=== PATIENT | male | born 1960 | race Caucasian/White ===

== ENCOUNTER 2023-02-19 14:43 | Inpatient (IN) | payer MEDICARE, MEDICAID ==
[~2023-02-19] VITALS: Ht 160 cm; Wt 51.3 kg
[2023-02-19] MEDS ORDERED: PIPERACILLIN/TAZ 3.375G PREMIX 50 ML IV ONE (15:45)
[2023-02-19] MEDS ORDERED: SODIUM CHLORIDE 0.9% 1000ML BAG (SEPSIS BOLUS) IV ONE (15:45)
[2023-02-19] MEDS ORDERED: VANCOMYCIN 1G PREMIX 200 ML IV ONE (15:45)
[2023-02-19 16:15] LABS: BASOPHILS % 0.3 % (0.0-2.0); EOSINOPHILS % 0.1 % (0.0-5.0); HEMATOCRIT. 29.3 % (42.0-52.0); HEMOGLOBIN. 9.4 g/dL (14.0-18.0); LYMPHOCYTES % 11.1 % (20.0-50.0); MEAN CORPUSCULAR VOLUME 87.2 fL (80.0-94.0); MEAN PLATELET VOLUME 7.7 fl (7.4-10.4); MONOCYTES % 4.6 % (2.0-8.0); NEUTROPHILS % 83.9 % (40.0-76.0); PLATELET 558 x1000/uL (130-400); RED BLOOD CELL COUNT 3.36 mill/uL (4.7-6.1); RED CELL DISTRIBUTION WIDTH 14.5 % (11.6-14.6)
[2023-02-19 16:25] LABS: PROTHROMBIN TIME 11.1 sec (9.6-11.0)
[2023-02-19 16:28] LABS: CHLORIDE 101 mEq/L (98-107)
[2023-02-19 17:45] LABS: CLARITY URINE CLEAR (CLEAR); COLOR URINE YELLOW (YELLOW); KETONES URINE NEGATIVE (NEGATIVE); LEUKOCYTE ESTERASE URINE NEGATIVE (NEGATIVE); NITRITE URINE NEGATIVE (NEGATIVE); OCCULT BLOOD URINE 3+ (NEGATIVE); PH URINE 5.5 (4.5-8.0); PROTEIN URINE 3+ (NEGATIVE); SPECIFIC GRAVITY URINE 1.029 (1.005-1.030)
[2023-02-19] MEDS ORDERED: MAGNESIUM HYDROXIDE 400MG/5ML 30ML UDC PO PRN (19:30)
[2023-02-19] MEDS ORDERED: CLONIDINE 0.1MG TABLET PO PRN (19:30)
[2023-02-19] MEDS ORDERED: VANCOMYCIN 1G PREMIX 200 ML IV SCH (19:30)
[2023-02-19] MEDS ORDERED: MAGNESIUM/ALUMINUM HYDROXIDE/SIMETHICONE 30ML UDC PO PRN (19:30)
[2023-02-19] MEDS ORDERED: HYDROCODONE/ACETAMINOPHEN 5/325MG TABLET PO PRN (19:30)
[2023-02-19] MEDS ORDERED: DIPHENHYDRAMINE 50MG/ML VIAL IV PRN (19:30)
[2023-02-19] MEDS ORDERED: ZOLPIDEM TARTRATE 5MG TABLET PO PRN (19:30)
[2023-02-19] MEDS ORDERED: ACETAMINOPHEN 325MG TABLET PO PRN ×2 (19:30)
[2023-02-19] MEDS ORDERED: DEXTROSE 50% WATER 50ML SYRINGE IV PRN (19:30)
[2023-02-19] MEDS ORDERED: ONDANSETRON HCL 4MG/2ML INJ IV PRN (19:30)
[2023-02-19] MEDS ORDERED: NALOXONE HCL 0.4MG/ML VIAL IV PRN (19:45)
[2023-02-19] MEDS: BLOOD SUGAR DIAGNOSTIC STRIP TEST SCH (21:14)
[2023-02-19] MEDS: INSULIN LISPRO 100 UNITS/ML SUBCUT SCH (21:31)
[2023-02-19] MEDS: ATORVASTATIN CALCIUM 40MG TABLET PO SCH (21:32)
[2023-02-19 21:45] VITALS: BP 137/72
[2023-02-20] VITALS: BP 122/71
[2023-02-20] MEDS ORDERED: APIX5TAB PO (00:49)
[2023-02-20] MEDS ORDERED: LOSA25TA26 MT (00:49)
[2023-02-20] MEDS ORDERED: ATOR-2 MT (00:49)
[2023-02-20] MEDS ORDERED: CEPH500T MT (00:49)
[2023-02-20] MEDS ORDERED: ASPI-1497 MT (00:49)
[2023-02-20] MEDS ORDERED: VANCOMYCIN 500MG PREMIX 100 ML IV SCH (01:00)
[2023-02-20] MEDS: SODIUM CHLORIDE 0.9% INJ 3ML FLUSH IVF SCH ×4 (01:31→21:01)
[2023-02-20] MEDS ORDERED: *PATIENT'S OWN MEDICATION STORAGE XX SCH (03:00)
[2023-02-20 04:00] VITALS: BP 129/72
[2023-02-20] MEDS: BLOOD SUGAR DIAGNOSTIC STRIP TEST SCH ×4 (06:28→20:53)
[2023-02-20] MEDS: INSULIN LISPRO 100 UNITS/ML SUBCUT SCH ×4 (06:59→21:06)
[2023-02-20 08:00] VITALS: BP 112/58
[2023-02-20] MEDS: DOCUSATE SODIUM 100MG CAPSULE PO SCH ×2 (08:46→17:37)
[2023-02-20] MEDS: LOSARTAN POTASSIUM 25 MG TABLET PO SCH (08:46)
[2023-02-20] MEDS: VANCOMYCIN 500MG PREMIX 100 ML IV SCH ×2 (08:46→17:37)
[2023-02-20] MEDS ORDERED: PNEUMOCOCCAL 23-VAL P-SAC VAC 0.5 ML IM ONE (11:00)
[2023-02-20 12:00] VITALS: BP 135/75
[2023-02-20] MEDS ORDERED: ASPIRIN 81MG TABLET PO SCH (12:30)
[2023-02-20] MEDS ORDERED: IOHEXOL-350 100 ML BOTTLE ONE (14:17)
[2023-02-20 16:00] VITALS: BP 157/75
[2023-02-20] MEDS ORDERED: APIXABAN 5 MG TABLET PO SCH (17:00)
[2023-02-20] MEDS: PIPERACILLIN/TAZOBACTAM 3.375 G in DEXTROSE 5% WATER 50 ML IV SCH (17:37)
[2023-02-20 20:00] VITALS: BP 113/62
[2023-02-20] MEDS: ATORVASTATIN CALCIUM 40MG TABLET PO SCH (20:55)
[2023-02-21] VITALS: BP 134/74
[2023-02-21] MEDS: PIPERACILLIN/TAZOBACTAM 3.375 G in DEXTROSE 5% WATER 50 ML IV SCH ×4 (00:03→22:07)
[2023-02-21] MEDS: VANCOMYCIN 500MG PREMIX 100 ML IV SCH ×2 (01:23→08:59)
[2023-02-21 04:00] VITALS: BP 131/69
[2023-02-21] MEDS: SODIUM CHLORIDE 0.9% INJ 3ML FLUSH IVF SCH ×3 (06:18→21:53)
[2023-02-21] MEDS: BLOOD SUGAR DIAGNOSTIC STRIP TEST SCH ×4 (06:23→21:53)
[2023-02-21] MEDS: INSULIN LISPRO 100 UNITS/ML SUBCUT SCH ×4 (06:23→21:55)
[2023-02-21 06:57] LABS: BASOPHILS % 0.4 % (0.0-2.0); EOSINOPHILS % 0.4 % (0.0-5.0); HEMATOCRIT. 29.3 % (42.0-52.0); HEMOGLOBIN. 9.5 g/dL (14.0-18.0); LYMPHOCYTES % 19.1 % (20.0-50.0); MEAN CORPUSCULAR HEMOGLOBIN 28.2 pg (28.0-32.0); MEAN CORPUSCULAR VOLUME 86.7 fL (80.0-94.0); MEAN PLATELET VOLUME 7.3 fl (7.4-10.4); MONOCYTES % 6.7 % (2.0-8.0); NEUTROPHILS % 73.4 % (40.0-76.0); PLATELET 577 x1000/uL (130-400); RED BLOOD CELL COUNT 3.37 mill/uL (4.7-6.1); RED CELL DISTRIBUTION WIDTH 14.7 % (11.6-14.6)
[2023-02-21 07:20] LABS: CREATINE KINASE 126 IU/L (39-308)
[2023-02-21 08:00] VITALS: BP 159/72
[2023-02-21] MEDS ORDERED: IODIXANOL 320MG/ML 100 ML BOTTLE IV ONE (08:36)
[2023-02-21] MEDS ORDERED: LIDOCAINE HCL 1% 20ML VIAL (Pyxis) INJ ONE (08:37)
[2023-02-21] MEDS ORDERED: HEPARIN 1000 UNITS/ML 10ML ONE (08:37)
[2023-02-21] MEDS: LOSARTAN POTASSIUM 25 MG TABLET PO SCH (08:59)
[2023-02-21] MEDS: DOCUSATE SODIUM 100MG CAPSULE PO SCH ×2 (09:00→17:55)
[2023-02-21] MEDS ORDERED: FENTANYL CITRATE/PF 50MCG/ML 2ML VIAL ONE (09:30)
[2023-02-21] MEDS ORDERED: MIDAZOLAM HCL 2 MG/2 ML VIAL ONE (09:30)
[2023-02-21 12:00] VITALS: BP 125/69
[2023-02-21] MEDS: CLOPIDOGREL 75MG TABLET PO SCH (12:49)
[2023-02-21 16:00] VITALS: BP 108/61
[2023-02-21 16:24] LABS: HEPATITIS B SURFACE ANTIGEN NEGATIVE
[2023-02-21 20:00] VITALS: BP 105/60
[2023-02-21] MEDS: ATORVASTATIN CALCIUM 40MG TABLET PO SCH (21:53)
[2023-02-22] VITALS: BP 121/66
[2023-02-22 04:00] VITALS: BP 156/78
[2023-02-22] MEDS: BLOOD SUGAR DIAGNOSTIC STRIP TEST SCH ×4 (06:07→20:50)
[2023-02-22] MEDS: PIPERACILLIN/TAZOBACTAM 3.375 G in DEXTROSE 5% WATER 50 ML IV SCH ×3 (06:15→20:48)
[2023-02-22] MEDS: INSULIN LISPRO 100 UNITS/ML SUBCUT SCH ×4 (06:16→20:50)
[2023-02-22] MEDS: SODIUM CHLORIDE 0.9% INJ 3ML FLUSH IVF SCH ×3 (06:17→20:51)
[2023-02-22 08:30] VITALS: BP 144/74
[2023-02-22] MEDS: DOCUSATE SODIUM 100MG CAPSULE PO SCH ×2 (08:36→16:38)
[2023-02-22] MEDS: LOSARTAN POTASSIUM 25 MG TABLET PO SCH (08:36)
[2023-02-22] MEDS: CLOPIDOGREL 75MG TABLET PO SCH (08:36)
[2023-02-22 12:10] VITALS: BP 124/70
[2023-02-22 16:00] VITALS: BP 146/78
[2023-02-22] MEDS ORDERED: TETANUS AND DIPHTHERIA TOX/PF 0.5ML SYR (ADULT) IM ONE (16:00)
[2023-02-22 20:00] VITALS: BP 132/69
[2023-02-22] MEDS: ATORVASTATIN CALCIUM 40MG TABLET PO SCH (20:49)
[2023-02-23] VITALS: BP 131/69
[2023-02-23 04:00] VITALS: BP 125/67
[2023-02-23] MEDS: PIPERACILLIN/TAZOBACTAM 3.375 G in DEXTROSE 5% WATER 50 ML IV SCH ×3 (06:42→21:44)
[2023-02-23] MEDS: INSULIN LISPRO 100 UNITS/ML SUBCUT SCH ×4 (06:43→20:46)
[2023-02-23] MEDS: BLOOD SUGAR DIAGNOSTIC STRIP TEST SCH ×4 (06:44→20:46)
[2023-02-23] MEDS: SODIUM CHLORIDE 0.9% INJ 3ML FLUSH IVF SCH ×3 (06:45→21:44)
[2023-02-23 07:09] LABS: BASOPHILS % 0.6 % (0.0-2.0); EOSINOPHILS % 0.8 % (0.0-5.0); HEMOGLOBIN. 8.6 g/dL (14.0-18.0); LYMPHOCYTES % 20.8 % (20.0-50.0); MEAN CORPUSCULAR HEMOGLOBIN 29.8 pg (28.0-32.0); MEAN CORPUSCULAR VOLUME 86.4 fL (80.0-94.0); MEAN PLATELET VOLUME 7.1 fl (7.4-10.4); MONOCYTES % 7.4 % (2.0-8.0); NEUTROPHILS % 70.4 % (40.0-76.0); PLATELET 523 x1000/uL (130-400); RED BLOOD CELL COUNT 2.89 mill/uL (4.7-6.1); RED CELL DISTRIBUTION WIDTH 14.7 % (11.6-14.6)
[2023-02-23 08:16] VITALS: BP 120/64
[2023-02-23] MEDS: LOSARTAN POTASSIUM 25 MG TABLET PO SCH (08:51)
[2023-02-23] MEDS: DOCUSATE SODIUM 100MG CAPSULE PO SCH ×2 (08:51→16:57)
[2023-02-23] MEDS: CLOPIDOGREL 75MG TABLET PO SCH (08:51)
[2023-02-23] MEDS ORDERED: VANCOMYCIN 500MG PREMIX 100 ML IV NR (09:00)
[2023-02-23 12:00] VITALS: BP 130/70
[2023-02-23 16:00] VITALS: BP 130/72
[2023-02-23] MEDS: SODIUM CHLORIDE 0.9% 1,000 ML IV SCH (16:49)
[2023-02-23 20:00] VITALS: BP 137/70
[2023-02-23] MEDS: ATORVASTATIN CALCIUM 40MG TABLET PO SCH (20:46)
[2023-02-24] VITALS: BP 147/75
[2023-02-24 04:00] VITALS: BP 135/72
[2023-02-24] MEDS: BLOOD SUGAR DIAGNOSTIC STRIP TEST SCH ×4 (06:04→20:27)
[2023-02-24] MEDS: SODIUM CHLORIDE 0.9% INJ 3ML FLUSH IVF SCH ×3 (06:04→21:32)
[2023-02-24] MEDS: INSULIN LISPRO 100 UNITS/ML SUBCUT SCH ×4 (06:04→20:29)
[2023-02-24] MEDS: PIPERACILLIN/TAZOBACTAM 3.375 G in DEXTROSE 5% WATER 50 ML IV SCH ×3 (06:33→21:32)
[2023-02-24 08:00] VITALS: BP 117/68
[2023-02-24] MEDS: LOSARTAN POTASSIUM 25 MG TABLET PO SCH (08:01)
[2023-02-24] MEDS: DOCUSATE SODIUM 100MG CAPSULE PO SCH ×2 (08:01→16:31)
[2023-02-24] MEDS: CLOPIDOGREL 75MG TABLET PO SCH (08:01)
[2023-02-24] MEDS: SODIUM CHLORIDE 0.9% 1,000 ML IV SCH (09:45)
[2023-02-24] MEDS ORDERED: VANCOMYCIN 500MG PREMIX 100 ML IV SCH (10:00)
[2023-02-24] MEDS ORDERED: LABETALOL 5MG/ML SYR 20 MG/4 ML SYRINGE IV PRN ×2 (10:45→11:45)
[2023-02-24] MEDS ORDERED: ONDANSETRON HCL 4MG/2ML INJ IV PRN ×2 (10:45→11:45)
[2023-02-24] MEDS ORDERED: HYDROMORPHONE HCL/PF 2MG/ML CPJ IV PRN ×2 (10:45→11:45)
[2023-02-24] MEDS ORDERED: MEPERIDINE HCL/PF 25MG/ML CPJ IV PRN ×2 (10:45→11:45)
[2023-02-24] MEDS ORDERED: PROPOFOL 200MG/20ML VIAL IV ONE (11:02)
[2023-02-24] MEDS ORDERED: LIDOCAINE HCL 1% 10 MG/ML 10ML VIAL ONE (11:02)
[2023-02-24] MEDS ORDERED: MIDAZOLAM HCL 2 MG/2 ML VIAL ONE (11:03)
[2023-02-24] MEDS ORDERED: FENTANYL CITRATE/PF 50MCG/ML 2ML VIAL ONE (11:03)
[2023-02-24] MEDS ORDERED: EPHEDRINE SULFATE 50MG/ML VIAL ONE (12:52)
[2023-02-24 16:00] VITALS: BP 112/64
[2023-02-24] MEDS: ASPIRIN 81MG EC TABLET PO SCH (16:31)
[2023-02-24 20:00] VITALS: BP 92/52
[2023-02-24] MEDS: ATORVASTATIN CALCIUM 40MG TABLET PO SCH (20:28)
[2023-02-25] VITALS: BP 129/79
[2023-02-25] MEDS: INSULIN LISPRO 100 UNITS/ML SUBCUT SCH ×4 (06:43→21:22)
[2023-02-25] MEDS: BLOOD SUGAR DIAGNOSTIC STRIP TEST SCH ×4 (06:44→21:20)
[2023-02-25] MEDS: PIPERACILLIN/TAZOBACTAM 3.375 G in DEXTROSE 5% WATER 50 ML IV SCH (06:44)
[2023-02-25] MEDS: SODIUM CHLORIDE 0.9% INJ 3ML FLUSH IVF SCH ×3 (06:44→21:20)
[2023-02-25 08:00] VITALS: BP 109/60
[2023-02-25] MEDS: LOSARTAN POTASSIUM 25 MG TABLET PO SCH (09:00)
[2023-02-25] MEDS: CLOPIDOGREL 75MG TABLET PO SCH (09:51)
[2023-02-25] MEDS: ASPIRIN 81MG EC TABLET PO SCH (09:51)
[2023-02-25] MEDS: DOCUSATE SODIUM 100MG CAPSULE PO SCH ×2 (09:51→17:32)
[2023-02-25] MEDS: LINAGLIPTIN 5MG TABLET PO SCH (09:51)
[2023-02-25 12:00] VITALS: BP 125/67
[2023-02-25 16:00] VITALS: BP 137/68
[2023-02-25] MEDS: PIPERACILLIN/TAZOBACTAM 3.375G in DEXT 5% WATER 50ML IV SCH (17:31)
[2023-02-25] MEDS: VANCOMYCIN 500MG PREMIX 100 ML IV SCH (17:32)
[2023-02-25] MEDS: ENOXAPARIN 40MG/0.4ML SYR SUBCUT SCH (17:33)
[2023-02-25 20:00] VITALS: BP 125/63
[2023-02-25] MEDS: ATORVASTATIN CALCIUM 40MG TABLET PO SCH (21:20)
[2023-02-25] MEDS ORDERED: NALOXONE HCL 0.4MG/ML VIAL IV PRN (21:45)
[2023-02-25] MEDS ORDERED: HYDROCODONE/ACETAMINOPHEN 10/325MG TABLET PO PRN (21:45)
[2023-02-26] VITALS (7 sets, daily range): BP systolic 102–136; BP diastolic 54–87
[2023-02-26] MEDS: PIPERACILLIN/TAZOBACTAM 3.375G in DEXT 5% WATER 50ML IV SCH ×4 (00:07→21:08)
[2023-02-26] MEDS: SODIUM CHLORIDE 0.9% INJ 3ML FLUSH IVF SCH ×3 (05:44→21:10)
[2023-02-26 05:58] LABS: BASOPHILS % 0.3 % (0.0-2.0); EOSINOPHILS % 0.9 % (0.0-5.0); HEMATOCRIT. 24.6 % (42.0-52.0); HEMOGLOBIN. 8.3 g/dL (14.0-18.0); LYMPHOCYTES % 18.7 % (20.0-50.0); MEAN CORPUSCULAR HEMOGLOBIN 29.5 pg (28.0-32.0); MEAN CORPUSCULAR VOLUME 87.3 fL (80.0-94.0); MEAN PLATELET VOLUME 7.1 fl (7.4-10.4); MONOCYTES % 7.7 % (2.0-8.0); NEUTROPHILS % 72.4 % (40.0-76.0); PLATELET 486 x1000/uL (130-400); RED BLOOD CELL COUNT 2.82 mill/uL (4.7-6.1); RED CELL DISTRIBUTION WIDTH 14.8 % (11.6-14.6)
[2023-02-26] MEDS: BLOOD SUGAR DIAGNOSTIC STRIP TEST SCH ×4 (06:33→21:09)
[2023-02-26] MEDS: INSULIN LISPRO 100 UNITS/ML SUBCUT SCH ×4 (06:33→21:00)
[2023-02-26] MEDS ORDERED: GLIMEPIRIDE 2MG TABLET PO SCH (06:40)
[2023-02-26 07:26] LABS: CHLORIDE 105 mEq/L (98-107)
[2023-02-26] MEDS: DOCUSATE SODIUM 100MG CAPSULE PO SCH ×2 (09:15→16:56)
[2023-02-26] MEDS: CLOPIDOGREL 75MG TABLET PO SCH (09:15)
[2023-02-26] MEDS: ASPIRIN 81MG EC TABLET PO SCH (09:15)
[2023-02-26] MEDS: LINAGLIPTIN 5MG TABLET PO SCH (09:15)
[2023-02-26] MEDS: LOSARTAN POTASSIUM 25 MG TABLET PO SCH (11:47)
[2023-02-26] MEDS: ENOXAPARIN 40MG/0.4ML SYR SUBCUT SCH (16:56)
[2023-02-26] MEDS: VANCOMYCIN 500MG PREMIX 100 ML IV SCH (16:57)
[2023-02-26] MEDS: ATORVASTATIN CALCIUM 40MG TABLET PO SCH (21:07)
== END 2023-02-26 21:40 | disposition home health service (06) | DRG 239 ==
LOC: ER 14:43 → 7EST 17:33 → EDBEDREQTM 17:34 → EDBEDREQ 17:34 → ENRESERV 20:41
PROVIDERS: ADMIT Internal Medicine; ATTEND Internal Medicine
PROC: 047M3ZZ Dilation of Right Popliteal Artery, Percutaneous Approach (ICD-10-PCS; principal; 2023-02-21)
PROC: 047K34Z Dilation of Right Femoral Artery with Drug-eluting Intraluminal Device, Percutaneous Approach (ICD-10-PCS; 2023-02-21)
PROC: 0Y6M0Z0 Detachment at Right Foot, Complete, Open Approach (ICD-10-PCS; 2023-02-24)
DX: E11.52 Type 2 diabetes mellitus with diabetic peripheral angiopathy with gangrene (principal); E43 Unspecified severe protein-calorie malnutrition; L97.309 Non-pressure chronic ulcer of unspecified ankle with unspecified severity; N17.9 Acute kidney failure, unspecified; R65.10 Systemic inflammatory response syndrome (SIRS) of non-infectious origin without acute organ dysfunction; I10 Essential (primary) hypertension; I25.10 Atherosclerotic heart disease of native coronary artery without angina pectoris; Z20.822 Contact with and (suspected) exposure to COVID-19; E78.00 Pure hypercholesterolemia, unspecified; E78.5 Hyperlipidemia, unspecified; G47.00 Insomnia, unspecified; Z79.02 Long term (current) use of antithrombotics/antiplatelets; Z79.82 Long term (current) use of aspirin; Z89.432 Acquired absence of left foot; Z89.431 Acquired absence of right foot; Z95.5 Presence of coronary angioplasty implant and graft; Z79.84 Long term (current) use of oral hypoglycemic drugs; Z79.899 Other long term (current) drug therapy; Z83.3 Family history of diabetes mellitus
CPT/HCPCS: 36415; 37226; 37230; 71045; 73630; 75635; 75710; 80048; 80053; 80061; 80202; 81003; 82550; 82962; 83036; 83605; 83735; 83880; 84145; 84484; 85025; 85347; 85651; 86803; 87070; 87075; 87106; 87340; 87426; 88305; 88311; 90714; 90732; 93005; 93306; 97116; 97162; 97166; 99285; C1725; C1760; C1769; C1874; C1876; C1893; C1894; J1644; J1650; J1815; J2250; J2543; J2704; J3010; J3370; J3490; J7030; J7060; Q9967

== ENCOUNTER → 2024-04-16 | Day surgery (SDC) | payer MEDICARE, MEDICAID ==
[~2024-04-16] MED LIST: APIX5TAB PO; ASPI-1497 MT; ATOR-2 MT; CEPH500T MT; LIDOCAINE HCL 1% 10 MG/ML 10ML VIAL ONE; LOSA25TA26 MT
== END | disposition home or self-care (01) ==
LOC: RADANGIO 09:40
PROVIDERS: ATTEND Podiatrist Foot & Ankle Surgery
DX: Z45.2 Encounter for adjustment and management of vascular access device (principal); Z79.899 Other long term (current) drug therapy; Z98.890 Other specified postprocedural states; Z83.3 Family history of diabetes mellitus
CPT/HCPCS: 71045; 36573; J3490; Z7610; C1725; C1751

== ENCOUNTER 2024-04-22 20:55 | Inpatient (IN) | payer MEDICARE, MEDICAID ==
[~2024-04-22] VITALS: Ht 160 cm; Wt 49.9 kg
[~2024-04-22 20:55] MED LIST changes: -LIDOCAINE HCL 1% 10 MG/ML 10ML VIAL ONE
[2024-04-22 22:43] LABS: BASOPHILS % 0.1 % (0.0-2.0); HEMOGLOBIN. 7.7 g/dL (14.0-18.0); LYMPHOCYTES % 8.4 % (20.0-50.0); MEAN CORPUSCULAR HEMOGLOBIN 28.1 pg (28.0-32.0); MEAN CORPUSCULAR HGB CONC 32.1 g/dL (31.0-37.0); MEAN CORPUSCULAR VOLUME 87.5 fL (80.0-94.0); MEAN PLATELET VOLUME 7.4 fl (7.4-10.4); MONOCYTES % 5.2 % (2.0-8.0); NEUTROPHILS % 86.3 % (40.0-76.0); PLATELET 582 x1000/uL (130-400); RED BLOOD CELL COUNT 2.74 mill/uL (4.7-6.1); RED CELL DISTRIBUTION WIDTH 13.9 % (11.6-14.6); WHITE BLOOD COUNT 16.9 x1000/uL (4.5-11.0)
[2024-04-22 22:51] LABS: CHLORIDE 104 mEq/L (98-107); POTASSIUM 4.1 mEq/L (3.5-5.1); SODIUM 130 mEq/L (136-145)
[2024-04-22 22:52] LABS: CALCIUM 8.2 mg/dL (8.7-10.4); CARBON DIOXIDE 17 mEq/L (21-32)
[2024-04-22 22:57] LABS: GLUCOSE 274 mg/dL (70-105); UREA NITROGEN BLOOD 33 mg/dL (9-23)
[2024-04-22 22:59] LABS: TROPONIN I HIGH SENSITIVITY 10 ng/L (3.0-53)
[2024-04-23] MEDS: SODIUM CHLORIDE 0.9% 1000ML BAG (SEPSIS BOLUS) IV ONE (00:21)
[2024-04-23 00:30] LABS: POTASSIUM 3.7 mEq/L (3.5-5.1)
[2024-04-23 00:31] LABS: CALCIUM 8.1 mg/dL (8.7-10.4)
[2024-04-23 00:33] LABS: PROTHROMBIN TIME 11.5 sec (9.6-11.0)
[2024-04-23 00:36] LABS: CREATININE 1.9 mg/dL (0.6-1.3)
[2024-04-23] MEDS: MORPHINE SULFATE 2 MG/ML CPJ (NOT FOR IM USE) IV ONE (00:47)
[2024-04-23] MEDS: CEFTRIAXONE 2GM/50ML 50 ML IV ONE (00:59)
[2024-04-23 01:02] LABS: CLARITY URINE CLOUDY (CLEAR); COLOR URINE YELLOW (YELLOW); GLUCOSE URINE 3+ (NEGATIVE); KETONES URINE TRACE (NEGATIVE); LEUKOCYTE ESTERASE URINE NEGATIVE (NEGATIVE); NITRITE URINE NEGATIVE (NEGATIVE); OCCULT BLOOD URINE 1+ (NEGATIVE); PROTEIN URINE 4+ (NEGATIVE); SPECIFIC GRAVITY URINE 1.023 (1.005-1.030); UROBILINOGEN URINE 0.2 E.U./dL (0.2-1.0)
[2024-04-23 01:21] LABS: BACTERIA URINE 5; SQUAMOUS EPITHELIAL CELL URINE 2+ /lpf (RARE/1+)
[2024-04-23 01:22] LABS: YEAST URINE 1+
[2024-04-23] MEDS: VANCOMYCIN 1000MG/250ML 250 ML IV SCH (02:56)
[2024-04-23 03:03] VITALS: BP 131/68; PULSE 101; RESP 18; TEMP 97.7
[2024-04-23] MEDS ORDERED: T3 PO (06:10)
[2024-04-23] MEDS ORDERED: SULF1TAB48 MT (06:10)
[2024-04-23] MEDS ORDERED: *PATIENT'S OWN MEDICATION STORAGE XX SCH (07:15)
[2024-04-23 08:00] VITALS: BP 124/62; PULSE 96; RESP 20; TEMP 98.2
[2024-04-23] MEDS: SODIUM CHLORIDE 0.9% 1,000 ML IV SCH (08:45)
[2024-04-23] MEDS ORDERED: DEXTROSE 50% WATER 50ML SYRINGE IV PRN (09:00)
[2024-04-23 12:00] VITALS: BP 133/64; PULSE 85; RESP 20; TEMP 98.2
[2024-04-23] MEDS: BLOOD SUGAR DIAGNOSTIC STRIP TEST SCH (12:20)
[2024-04-23] MEDS: INSULIN GLARGINE 100 UNITS/ML SUBCUT SCH (12:36)
[2024-04-23] MEDS: INSULIN LISPRO 100 UNITS/ML SUBCUT SCH (13:33)
[2024-04-23] MEDS ORDERED: IOHEXOL-350 100 ML BOTTLE ONE (14:44)
[2024-04-23 16:00] VITALS: BP 134/73; PULSE 102; RESP 20; TEMP 97.3
[2024-04-23] MEDS ORDERED: NALOXONE HCL 0.4MG/ML VIAL IV PRN (18:30)
[2024-04-23 20:00] VITALS: BP 127/67; PULSE 111; RESP 20; TEMP 98.1
[2024-04-23] MEDS: MEROPENEM 1G/100ML 100 ML IV SCH (21:11)
[2024-04-24] VITALS (14 sets, daily range): BP systolic 125–157; BP diastolic 55–76; PULSE 67–99; RESP 16–20; TEMP 97.2–99.2
[2024-04-24] MEDS: MORPHINE SULFATE 2 MG/ML CPJ (NOT FOR IM USE) IV PRN (00:40)
[2024-04-24] MEDS ORDERED: VANCOMYCIN 750MG/150ML IV SCH (06:00)
[2024-04-24 06:25] LABS: BASOPHILS % 0.2 % (0.0-2.0); DIFFERENTIAL COMMENT 0; EOSINOPHILS % 0.1 % (0.0-5.0); LYMPHOCYTES % 11.6 % (20.0-50.0); MEAN CORPUSCULAR HEMOGLOBIN 28.6 pg (28.0-32.0); MEAN CORPUSCULAR HGB CONC 32.6 g/dL (31.0-37.0); MEAN CORPUSCULAR VOLUME 87.7 fL (80.0-94.0); MEAN PLATELET VOLUME 7.5 fl (7.4-10.4); MONOCYTES % 7.7 % (2.0-8.0); NEUTROPHILS % 80.4 % (40.0-76.0); PLATELET 527 x1000/uL (130-400); RED BLOOD CELL COUNT 2.26 mill/uL (4.7-6.1); RED CELL DISTRIBUTION WIDTH 14.3 % (11.6-14.6); WHITE BLOOD COUNT 15.7 x1000/uL (4.5-11.0)
[2024-04-24 06:29] LABS: POTASSIUM 3.8 mEq/L (3.5-5.1)
[2024-04-24 06:35] LABS: CREATININE 1.8 mg/dL (0.6-1.3)
[2024-04-24 06:49] LABS: HEMOGLOBIN. 6.5 g/dL (14.0-18.0)
[2024-04-24 06:50] LABS: HEMATOCRIT. 19.8 % (42.0-52.0)
[2024-04-24 19:12] LABS: HEMATOCRIT 29.3 % (42.0-52.0); HEMOGLOBIN 9.5 g/dL (14.0-18.0)
[2024-04-24] MEDS: VANCOMYCIN 500MG/100ML IV SCH (19:40)
[2024-04-25] VITALS: BP 139/61; PULSE 87; RESP 18; TEMP 97.1
[2024-04-25] MEDS ORDERED: POLYMYXIN B SULFATE 500000 UNITS/VIAL ONE (06:37)
[2024-04-25] MEDS ORDERED: LIDOCAINE HCL/EPINEPHRINE 1%-EPI 1:100,000 20 ML VIAL ONE (06:38)
[2024-04-25] MEDS ORDERED: VANCOMYCIN HCL 1 GM/VIAL ONE (06:38)
[2024-04-25] MEDS ORDERED: PROPOFOL 200MG/20ML VIAL IV ONE (06:57)
[2024-04-25] MEDS ORDERED: LIDOCAINE HCL 1% 20ML VIAL (Pyxis) INJ ONE (06:57)
[2024-04-25] MEDS ORDERED: CEFAZOLIN SODIUM 1000MG/VIAL ONE (06:57)
[2024-04-25] MEDS ORDERED: MIDAZOLAM HCL 2 MG/2 ML VIAL ONE (07:02)
[2024-04-25] MEDS ORDERED: FENTANYL CITRATE/PF 50MCG/ML 2ML VIAL ONE (07:03)
[2024-04-25] MEDS ORDERED: ROCURONIUM BROMIDE 10MG/ML VIAL 5ML IV ONE (07:03)
[2024-04-25] MEDS ORDERED: ONDANSETRON HCL 4MG/2ML INJ ONE (07:33)
[2024-04-25] MEDS ORDERED: DEXAMETHASONE 4MG/ML 1ML VIAL ONE (07:33)
[2024-04-25] MEDS ORDERED: SUCCINYLCHOLINE CHLORIDE 200MG/10ML IV ONE (07:35)
[2024-04-25] MEDS ORDERED: HYDROMORPHONE HCL/PF 2MG/ML CPJ ONE (07:43)
[2024-04-25] MEDS ORDERED: MEPERIDINE HCL/PF 25MG/ML CPJ IV PRN (07:45)
[2024-04-25] MEDS ORDERED: FENTANYL CITRATE/PF 50MCG/ML 2ML VIAL IV PRN (07:45)
[2024-04-25] MEDS ORDERED: HYDROMORPHONE HCL/PF 2MG/ML CPJ IV PRN (07:45)
[2024-04-25] MEDS ORDERED: ONDANSETRON HCL 4MG/2ML INJ IV PRN (07:45)
[2024-04-25 11:39] LABS: HEMOGLOBIN 9.3 g/dL (14.0-18.0)
[2024-04-25 12:00] VITALS: BP 127/67; PULSE 88; RESP 18; TEMP 97.5
[2024-04-25 16:00] VITALS: BP 134/69; PULSE 89; RESP 19; TEMP 97.4
[2024-04-25 20:00] VITALS: BP 136/49; PULSE 89; RESP 18; TEMP 97.2
[2024-04-26] VITALS: BP_SYST 121; PULSE 84; RESP 18; TEMP 97.3
[2024-04-26 04:00] VITALS: BP 131/52; PULSE 75; RESP 18; TEMP 97.8
[2024-04-26 04:40] LABS: POTASSIUM 4.7 mEq/L (3.5-5.1)
[2024-04-26 04:41] LABS: CALCIUM 7.9 mg/dL (8.7-10.4)
[2024-04-26 04:47] LABS: HEMATOCRIT. 27.8 % (42.0-52.0); HEMOGLOBIN. 9.2 g/dL (14.0-18.0); MEAN CORPUSCULAR HEMOGLOBIN 29.3 pg (28.0-32.0); MEAN CORPUSCULAR HGB CONC 33.2 g/dL (31.0-37.0); MEAN CORPUSCULAR VOLUME 88.2 fL (80.0-94.0); MEAN PLATELET VOLUME 7.5 fl (7.4-10.4); PLATELET 563 x1000/uL (130-400); RED BLOOD CELL COUNT 3.15 mill/uL (4.7-6.1); WHITE BLOOD COUNT 19.6 x1000/uL (4.5-11.0)
[2024-04-26 04:48] LABS: VANCOMYCIN TROUGH 23.1 ug/mL (5.0-10.0)
[2024-04-26 04:50] LABS: CREATININE 2.8 mg/dL (0.6-1.3)
[2024-04-26] MEDS: VANCOMYCIN 500MG/100ML IV SCH (06:00)
[2024-04-26 07:00] LABS: DIFFERENTIAL COMMENT 1
[2024-04-26 08:00] VITALS: BP 140/66; PULSE 77; RESP 20; TEMP 98
[2024-04-26] MEDS: INSULIN GLARGINE 100 UNITS/ML SUBCUT SCH (10:09)
[2024-04-26 10:51] LABS: PLATELET ESTIMATE INCREASED
[2024-04-26 10:52] LABS: ANISOCYTOSIS 1+
[2024-04-26 12:00] VITALS: BP 143/67; PULSE 75; RESP 18; TEMP 98
[2024-04-26 18:37] VITALS: BP 170/79; PULSE 84; RESP 18; TEMP 98
[2024-04-26] MEDS ORDERED: DEXTROSE 50% WATER 50ML SYRINGE IV PRN (18:45)
[2024-04-26 20:02] LABS: BG BASE EXCESS -10.2 mmol/L (-2.0-2.0); BG CARBOXYHEMOGLOBIN 0.3 % (0.5-1.5); BG DEOXYHEMOGLOBIN 3.1 % (0.0-5.0); BG HCO3 ACT 14.3 mmol/L (22.0-26.0); BG METHEMOGLOBIN 0.2 % (0.0-1.5); BG OXYGEN SATURATION 96.9 % (92.0-98.5); BG OXYHEMOGLOBIN 96.4 % (94.0-97.0); BG PCO2 27.3 mmHg (35.0-45.0); BG PH 7.336 (7.350-7.450); BG PO2 99.9 mmHg (75.0-100.0); BG SAMPLE SITE RIGHT RADIAL; BG TOTAL HEMOGLOBIN 10.5 g/dL (12.0-18.0); BG VENT MODE ROOM AIR
[2024-04-26] MEDS ORDERED: BLOOD SUGAR DIAGNOSTIC STRIP TEST SCH (21:00)
[2024-04-26] MEDS: MEROPENEM 500MG/50ML IV SCH (21:47)
[2024-04-26] MEDS: SODIUM CHLORIDE 0.9% 1,000 ML IV SCH (22:04)
[2024-04-26 22:08] LABS: IRON 33 ug/dL (65-175)
[2024-04-26 22:22] LABS: TOTAL IRON BINDING CAPACITY > 670 ug/dl (250-425)
[2024-04-27] MEDS: VANCOMYCIN 500MG PREMIX 100 ML IV SCH (05:56)
[2024-04-27] MEDS: INSULIN LISPRO 100 UNITS/ML SUBCUT SCH (07:20)
[2024-04-27] MEDS: PANTOPRAZOLE 40MG DR TABLET PO SCH (07:20)
[2024-04-27 08:00] VITALS: BP 149/60; PULSE 75; RESP 19; TEMP 97.9
[2024-04-27 12:00] VITALS: BP 135/63; PULSE 80; RESP 20; TEMP 98.8
[2024-04-27 16:00] VITALS: BP 145/67; PULSE 83; RESP 20; TEMP 98
[2024-04-27 18:20] LABS: HEMATOCRIT 29.5 % (42.0-52.0); HEMOGLOBIN 9.7 g/dL (14.0-18.0)
[2024-04-27 18:25] LABS: POTASSIUM 4.3 mEq/L (3.5-5.1)
[2024-04-27 18:31] LABS: CREATININE 2.1 mg/dL (0.6-1.3)
[2024-04-27 20:00] VITALS: BP 124/60; PULSE 87; RESP 20; TEMP 98.8
[2024-04-27 21:06] LABS: CLARITY URINE CLEAR (CLEAR); COLOR URINE YELLOW (YELLOW); GLUCOSE URINE TRACE (NEGATIVE); KETONES URINE NEGATIVE (NEGATIVE); LEUKOCYTE ESTERASE URINE NEGATIVE (NEGATIVE); NITRITE URINE NEGATIVE (NEGATIVE); OCCULT BLOOD URINE 1+ (NEGATIVE); PH URINE 5.5 (4.5-8.0); PROTEIN URINE 3+ (NEGATIVE); SPECIFIC GRAVITY URINE 1.012 (1.005-1.030); UROBILINOGEN URINE 0.2 E.U./dL (0.2-1.0)
[2024-04-27 21:48] LABS: BACTERIA URINE TRACE; RBC URINE 0-2 /hpf (0-2); SQUAMOUS EPITHELIAL CELL URINE NONE SEEN /lpf (RARE/1+); WBC URINE 0-2 /hpf (0-2)
[2024-04-28 06:53] LABS: CARBON DIOXIDE 16 mEq/L (21-32); CHLORIDE 115 mEq/L (98-107); POTASSIUM 4.6 mEq/L (3.5-5.1); SODIUM 138 mEq/L (136-145)
[2024-04-28 06:54] LABS: CALCIUM 8.2 mg/dL (8.7-10.4)
[2024-04-28 06:58] LABS: HEMATOCRIT 29.7 % (42.0-52.0); HEMOGLOBIN 9.7 g/dL (14.0-18.0); MEAN CORPUSCULAR HEMOGLOBIN 29.4 pg (28.0-32.0); MEAN CORPUSCULAR HGB CONC 32.8 g/dL (31.0-37.0); MEAN CORPUSCULAR VOLUME 89.7 fL (80.0-94.0); PLATELET 564 x1000/uL (130-400); RED BLOOD CELL COUNT 3.31 mill/uL (4.7-6.1); WHITE BLOOD COUNT 12.6 x1000/uL (4.5-11.0)
[2024-04-28 06:59] LABS: CREATININE 1.9 mg/dL (0.6-1.3); GLUCOSE 64 mg/dL (70-105); UREA NITROGEN BLOOD 35 mg/dL (9-23)
[2024-04-28 07:01] LABS: PHOSPHORUS 4.2 mg/dL (2.5-4.9)
[2024-04-28] MEDS: INSULIN LISPRO 100 UNITS/ML SUBCUT SCH (07:50)
[2024-04-28] MEDS: MAGNESIUM 2 G PREMIX 50 ML IV SCH (09:42)
[2024-04-28] MEDS: VANCOMYCIN 500MG PREMIX 100 ML IV SCH (18:30)
[2024-04-28] MEDS: MEROPENEM 500MG/50ML IV SCH (22:03)
[2024-04-29] VITALS: BP 162/72; PULSE 90; TEMP 97.8
[2024-04-29 08:00] VITALS: BP 157/71; PULSE 85; RESP 17; TEMP 98.3
[2024-04-29] MEDS: FAMOTIDINE 20MG TABLET PO SCH (09:13)
[2024-04-29] MEDS ORDERED: AMLO5TAB88 MT (09:55)
[2024-04-29 10:17] LABS: BASOPHILS % 0.4 % (0.0-2.0); EOSINOPHILS % 1.2 % (0.0-5.0); HEMATOCRIT. 28.7 % (42.0-52.0); HEMOGLOBIN. 9.3 g/dL (14.0-18.0); LYMPHOCYTES % 14.4 % (20.0-50.0); MEAN CORPUSCULAR HEMOGLOBIN 28.7 pg (28.0-32.0); MEAN CORPUSCULAR HGB CONC 32.5 g/dL (31.0-37.0); MEAN CORPUSCULAR VOLUME 88.5 fL (80.0-94.0); MONOCYTES % 4.8 % (2.0-8.0); NEUTROPHILS % 79.2 % (40.0-76.0); PLATELET 528 x1000/uL (130-400); RED BLOOD CELL COUNT 3.24 mill/uL (4.7-6.1); WHITE BLOOD COUNT 12.9 x1000/uL (4.5-11.0)
[2024-04-29 10:29] LABS: POTASSIUM 4.4 mEq/L (3.5-5.1)
[2024-04-29 10:30] LABS: CALCIUM 7.9 mg/dL (8.7-10.4)
[2024-04-29 10:35] LABS: CREATININE 1.5 mg/dL (0.6-1.3)
[2024-04-29 11:48] VITALS: BP 157/71; PULSE 85; TEMP 98.3; O2SAT 97
[2024-04-29 12:00] VITALS: BP 150/63; PULSE 87; RESP 18; TEMP 97.8
[2024-04-29] MEDS ORDERED: VANCOMYCIN 500MG PREMIX 100 ML IV SCH (21:00)
== END 2024-04-29 14:06 | disposition home or self-care (01) | DRG 853 ==
LOC: ER 20:55 → 6WST 04-23 00:17
PROVIDERS: ADMIT Internal Medicine; ATTEND Internal Medicine
PROC: 30233N1 Transfusion of Nonautologous Red Blood Cells into Peripheral Vein, Percutaneous Approach (ICD-10-PCS; 2024-04-24)
PROC: 0Y6C0Z3 Detachment at Right Upper Leg, Low, Open Approach (ICD-10-PCS; principal; 2024-04-25)
DX: A41.9 Sepsis, unspecified organism (principal); A48.0 Gas gangrene; M72.6 Necrotizing fasciitis; M86.9 Osteomyelitis, unspecified; E11.52 Type 2 diabetes mellitus with diabetic peripheral angiopathy with gangrene; I50.22 Chronic systolic (congestive) heart failure; I13.0 Hypertensive heart and chronic kidney disease with heart failure and stage 1 through stage 4 chronic kidney disease, or unspecified chronic kidney disease; N17.9 Acute kidney failure, unspecified; E11.42 Type 2 diabetes mellitus with diabetic polyneuropathy; E11.621 Type 2 diabetes mellitus with foot ulcer; E78.00 Pure hypercholesterolemia, unspecified; E11.69 Type 2 diabetes mellitus with other specified complication; K80.20 Calculus of gallbladder without cholecystitis without obstruction; L97.519 Non-pressure chronic ulcer of other part of right foot with unspecified severity; D50.9 Iron deficiency anemia, unspecified; I70.201 Unspecified atherosclerosis of native arteries of extremities, right leg; E11.65 Type 2 diabetes mellitus with hyperglycemia; E11.22 Type 2 diabetes mellitus with diabetic chronic kidney disease; N18.9 Chronic kidney disease, unspecified; Z79.01 Long term (current) use of anticoagulants; Z89.611 Acquired absence of right leg above knee; Z79.4 Long term (current) use of insulin
CPT/HCPCS: 36415; 36600; 71045; 73590; 73630; 73718; 73721; 75635; 76770; 80048; 80202; 81003; 82375; 82805; 82962; 83036; 83540; 83550; 83605; 83615; 83735; 83880; 84100; 84145; 84484; 85014; 85018; 85025; 85027; 86850; 86900; 86920; 88307; 88311; 93005; 93306; 93923; 99285; J0330; J0690; J0696; J1100; J1170; J1815; J2185; J2250; J2270; J2405; J2704; J3010; J3370; J3475; J3490; J7030; P9016; Q9967

== ENCOUNTER 2025-05-11 09:30 | Inpatient (IN) | payer MEDICARE, MEDICAID ==
[~2025-05-11] VITALS: Ht 157.5 cm; Wt 66.2 kg
[~2025-05-11 09:30] MED LIST changes: +AMLO5TAB88 MT; -APIX5TAB PO; -CEPH500T MT; +T3 PO
[2025-05-11 10:40] VITALS: BP 142/74; PULSE 101; RESP 18; TEMP 36.8
[2025-05-11 12:00] VITALS: BP 145/78; PULSE 100; RESP 19; TEMP 36.6; O2SAT 100
[2025-05-11] MEDS ORDERED: ACETAMINOPHEN 325MG TABLET PO PRN (14:15)
[2025-05-11 16:00] VITALS: BP 198/89; PULSE 96; RESP 19; TEMP 36.6; O2SAT 100
[2025-05-11 16:58] LABS: BASOPHILS % 0.5 % (0.0-2.0); EOSINOPHILS % 0.5 % (0.0-5.0); HEMATOCRIT. 32.4 % (42.0-52.0); HEMOGLOBIN. 10.8 g/dL (14.0-18.0); LYMPHOCYTES % 22.2 % (20.0-50.0); MEAN CORPUSCULAR HEMOGLOBIN 30.2 pg (28.0-32.0); MEAN CORPUSCULAR HGB CONC 33.3 g/dL (31.0-37.0); MEAN CORPUSCULAR VOLUME 90.9 fL (80.0-94.0); MONOCYTES % 8.2 % (2.0-8.0); NEUTROPHILS % 68.6 % (40.0-76.0); PLATELET 384 x1000/uL (130-400); RED BLOOD CELL COUNT 3.57 mill/uL (4.7-6.1); RED CELL DISTRIBUTION WIDTH 13.5 % (11.6-14.6); WHITE BLOOD COUNT 7.4 x1000/uL (4.5-11.0)
[2025-05-11 17:08] LABS: POTASSIUM 4.7 mEq/L (3.5-5.1)
[2025-05-11 17:09] LABS: CALCIUM 8.9 mg/dL (8.7-10.4)
[2025-05-11 17:10] LABS: INR 0.9; PROTHROMBIN TIME 9.8 sec (9.6-11.0)
[2025-05-11] MEDS ORDERED: INSULIN LISPRO 100 UNITS/ML SUBCUT SCH ×2 (17:20→21:00)
[2025-05-11 17:34] LABS: CREATININE 3.7 mg/dL (0.6-1.3)
[2025-05-11] MEDS ORDERED: DEXTROSE 50% WATER 50ML SYRINGE IV PRN ×2 (19:00→20:45)
[2025-05-11 20:00] VITALS: BP 176/84; PULSE 92; RESP 18; TEMP 36.1; O2SAT 97
[2025-05-11] MEDS ORDERED: NALOXONE HCL 0.4MG/ML VIAL IV PRN (20:00)
[2025-05-11] MEDS ORDERED: ONDANSETRON HCL 4MG/2ML INJ IV PRN (20:45)
[2025-05-11] MEDS ORDERED: MAGNESIUM/ALUMINUM HYDROXIDE/SIMETHICONE 30ML UDC PO PRN (20:45)
[2025-05-11] MEDS: BLOOD SUGAR DIAGNOSTIC STRIP TEST SCH ×2 (20:45→21:12)
[2025-05-11] MEDS ORDERED: DIPHENHYDRAMINE 50MG/ML VIAL IV PRN (20:45)
[2025-05-11] MEDS ORDERED: ZOLPIDEM TARTRATE 5MG TABLET PO PRN (20:45)
[2025-05-11] MEDS ORDERED: GUAIFENESIN 200MG/10ML SUGAR FREE UDC PO PRN (20:45)
[2025-05-11] MEDS: PIPERACILLIN/TAZO 3.375G/50ML 50 ML IV SCH (20:52)
[2025-05-11] MEDS: CLONIDINE 0.1MG TABLET PO PRN (20:53)
[2025-05-11] MEDS ORDERED: VANCOMYCIN 1G PREMIX 200 ML IV NR (21:00)
[2025-05-11] MEDS: INSULIN LISPRO (HIGH DOSE) 100 UNITS/ML SUBCUT SCH (21:09)
[2025-05-11] MEDS: HYDRALAZINE HCL 10MG TABLET PO SCH (21:38)
[2025-05-11] MEDS: ISOSORBIDE DINITRATE 20MG TABLET PO SCH (21:38)
[2025-05-11] MEDS: CARVEDILOL 6.25 MG TABLET PO SCH (21:38)
[2025-05-11] MEDS: GABAPENTIN 100MG CAPSULE PO SCH (21:38)
[2025-05-11] MEDS: ATORVASTATIN CALCIUM 40MG TABLET PO SCH (21:38)
[2025-05-11] MEDS: SODIUM CHLORIDE 0.9% 3ML FLUSH IVF SCH (21:39)
[2025-05-12] VITALS: BP 97/53; PULSE 75; RESP 18; TEMP 36.2; O2SAT 98
[2025-05-12 08:00] VITALS: BP 120/60; PULSE 72; RESP 18; TEMP 36.4; O2SAT 96
[2025-05-12] MEDS ORDERED: LIDOCAINE HCL 1% 20ML VIAL ONE (10:34)
[2025-05-12] MEDS ORDERED: IODIXANOL 320MG/ML 100 ML BOTTLE IV ONE (10:34)
[2025-05-12] MEDS ORDERED: HEPARIN 1000 UNITS/ML 10ML ONE (10:34)
[2025-05-12] MEDS ORDERED: MIDAZOLAM HCL 2 MG/2 ML VIAL ONE (10:57)
[2025-05-12] MEDS ORDERED: FENTANYL CITRATE/PF 50MCG/ML 2ML VIAL ONE (10:57)
[2025-05-12] MEDS: ISOSORBIDE DINITRATE 20MG TABLET PO SCH (15:47)
[2025-05-12] MEDS: PREGABALIN 50 MG CAPSULE PO SCH (15:47)
[2025-05-12] MEDS: CARVEDILOL 6.25 MG TABLET PO SCH (15:48)
[2025-05-12] MEDS: HYDRALAZINE HCL 10MG TABLET PO SCH (15:48)
[2025-05-12] MEDS: EMPAGLIFLOZIN 25MG TABLET PO SCH (15:48)
[2025-05-12] MEDS: DEXT 5%/0.45% NACL 1000ML 1,000 ML IV SCH (15:49)
[2025-05-12 16:00] VITALS: BP 158/71; PULSE 67; RESP 18; TEMP 36.6; O2SAT 100
[2025-05-12 20:00] VITALS: BP 119/60; PULSE 74; RESP 19; TEMP 36.6; O2SAT 98
[2025-05-12] MEDS: ACETAMINOPHEN 325MG TABLET PO PRN (21:42)
[2025-05-13] VITALS: BP 115/58; PULSE 73; RESP 19; TEMP 36.2; O2SAT 99
[2025-05-13 04:00] VITALS: BP 119/59; PULSE 76; RESP 19; TEMP 37.2; O2SAT 97
[2025-05-13] MEDS ORDERED: POLYMYXIN B SULFATE 500000 UNITS/VIAL ONE (07:20)
[2025-05-13] MEDS ORDERED: VANCOMYCIN HCL 1GM VIAL ONE (07:21)
[2025-05-13] MEDS ORDERED: LIDOCAINE HCL 1% 20ML VIAL ONE (07:21)
[2025-05-13] MEDS ORDERED: MIDAZOLAM HCL 2 MG/2 ML VIAL ONE (07:28)
[2025-05-13] MEDS ORDERED: PROPOFOL 200MG/20ML VIAL IV ONE (07:31)
[2025-05-13 07:34] LABS: POTASSIUM 5.6 mEq/L (3.5-5.1)
[2025-05-13 07:35] LABS: CALCIUM 8.1 mg/dL (8.7-10.4)
[2025-05-13 07:40] LABS: CREATININE 4.4 mg/dL (0.6-1.3)
[2025-05-13] MEDS ORDERED: HYDROMORPHONE HCL/PF 1MG/ML INJ IV PRN (08:30)
[2025-05-13] MEDS ORDERED: ONDANSETRON HCL 4MG/2ML INJ IV PRN (08:30)
[2025-05-13] MEDS ORDERED: LABETALOL 5MG/ML 4ML INJ IV PRN (08:30)
[2025-05-13] MEDS ORDERED: GLYCOPYRROLATE 0.2MG/ML VIAL 5ML IV PRN (08:30)
[2025-05-13] MEDS ORDERED: HYDRALAZINE 20MG/ML VIAL IV PRN (08:30)
[2025-05-13 12:00] VITALS: BP 114/66; PULSE 83; RESP 18; TEMP 36.4; O2SAT 98
[2025-05-13] MEDS ORDERED: LIDOCAINE HCL 1% 10 MG/ML 10ML VIAL ONE (13:35)
[2025-05-13] MEDS ORDERED: GLYCOPYRROLATE 0.2 MG/ML 2ML VIAL IV PRN (14:45)
[2025-05-13 16:00] VITALS: BP 102/54; PULSE 79; RESP 18; TEMP 36.6; O2SAT 100
[2025-05-13] MEDS: HYDROCODONE/ACETAMINOPHEN 5/325MG TABLET PO PRN (16:56)
[2025-05-13 20:00] VITALS: BP 124/69; PULSE 99; RESP 20; TEMP 36.7; O2SAT 95
[2025-05-13] MEDS: METRONIDAZOLE 500MG TABLET PO SCH (21:00)
[2025-05-13] MEDS: CEFTRIAXONE 1GM/50ML 50 ML IV SCH (21:32)
[2025-05-14] VITALS (31 sets, daily range): BP systolic 79–187; BP diastolic 56–92; PULSE 79–119; RESP 17–33; TEMP 36.6–36.8; O2SAT 90–100
[2025-05-14 10:29] LABS: CALCIUM 8.1 mg/dL (8.7-10.4); POTASSIUM 5.6 mEq/L (3.5-5.1)
[2025-05-14 10:35] LABS: CREATININE 4.9 mg/dL (0.6-1.3)
[2025-05-14] MEDS ORDERED: HEPARIN 25,000 UNITS PREMIX 250 ML IV SCH (19:15)
[2025-05-14] MEDS: AMIODARONE 150MG/100ML D5W 100 ML IV SCH (19:45)
[2025-05-14] MEDS ORDERED: NOREPINEPHRINE 32 MG in DEXT 5% WATER 218 ML IV PRN (19:45)
[2025-05-14] MEDS ORDERED: PHENYLEPHRINE 100 MG in DEXT 5% WATER 240 ML IV PRN (19:45)
[2025-05-14] MEDS: NOREPINEPHRINE 8MG/250ML PMX 250 ML IV PRN (20:17)
[2025-05-14] MEDS: PROPOFOL 10MG/ML 100ML 100 ML IV PRN (20:18)
[2025-05-14 20:26] LABS: CHLORIDE 105 mEq/L (98-107); POTASSIUM 5.3 mEq/L (3.5-5.1); SODIUM 138 mEq/L (136-145)
[2025-05-14 20:27] LABS: CARBON DIOXIDE 17 mEq/L (21-32)
[2025-05-14 20:28] LABS: CALCIUM 9.9 mg/dL (8.7-10.4)
[2025-05-14 20:29] LABS: PARTIAL THROMBOPLASTIN TIME 27.1 sec (23.4-31.0)
[2025-05-14 20:33] LABS: UREA NITROGEN BLOOD 68 mg/dL (9-23)
[2025-05-14 20:34] LABS: ALANINE AMINOTRANSFERASE 17 IU/L (10-49); ALANINE AMINOTRANSFERASE 18 IU/L (10-49); ALBUMIN 3.2 g/dL (3.2-4.8); ALBUMIN 3.3 g/dL (3.2-4.8); ASPARTATE AMINOTRANSFERASE 39 IU/L (<34); ASPARTATE AMINOTRANSFERASE 40 IU/L (<34); BILIRUBIN DIRECT < 0.1 mg/dL (<=3.0); BILIRUBIN TOTAL 0.2 mg/dL (0.1-1.0); PROTEIN TOTAL 6.1 g/dL (6.0-8.3)
[2025-05-14 20:35] LABS: BILIRUBIN TOTAL 0.2 mg/dL (0.1-1.0); PROTEIN TOTAL 6.2 g/dL (6.0-8.3)
[2025-05-14 20:39] LABS: BG BASE EXCESS -13.7 mmol/L (-2.0-3.0); BG CARBOXYHEMOGLOBIN 0.1 % (0.5-1.5); BG DEOXYHEMOGLOBIN 0.4 % (0.0-5.0); BG FRACTION INSPIRED OXYGEN 100; BG METHEMOGLOBIN 0.1 % (0.5-1.5); BG OXYGEN SATURATION 99.6 % (94.0-98.0); BG OXYHEMOGLOBIN 99.4 % (94.0-98.0); BG PCO2 38.7 mmHg (35.0-48.0); BG PH 7.176 (7.350-7.450); BG PO2 355.4 mmHg (83.0-108.0); BG SAMPLE SITE ALINE; BG TOTAL HEMOGLOBIN 13.3 g/dL (13.5-17.5); BG VENT MODE VENT - AC
[2025-05-14 20:45] LABS: GLUCOSE 312 mg/dL (70-105)
[2025-05-14 20:47] LABS: CREATININE 5.7 mg/dL (0.6-1.3); TROPONIN I HIGH SENSITIVITY 1125 ng/L (3.0-53)
[2025-05-14 20:48] LABS: LACTIC ACID 6.3 mmol/L (0.4-2.0)
[2025-05-14 20:49] LABS: PHOSPHORUS 10.1 mg/dL (2.5-4.9)
[2025-05-14] MEDS ORDERED: CALCIUM CHLORIDE 1GM/10ML SYR IV ONE (21:00)
[2025-05-14] MEDS: HEPARIN 80 UNITS/KG BOLUS IV SCH (21:19)
[2025-05-14] MEDS: HEPARIN 25,000 UNITS PREMIX 250 ML IV SCH (21:21)
[2025-05-14] MEDS: SODIUM BICARBONATE 8.4% 50MEQ/50ML SYR IV SCH (21:35)
[2025-05-14 21:59] LABS: BASOPHILS % 0.2 % (0.0-2.0); EOSINOPHILS % 0.1 % (0.0-5.0); HEMATOCRIT. 29.6 % (42.0-52.0); HEMOGLOBIN. 9.9 g/dL (14.0-18.0); LYMPHOCYTES % 8.3 % (20.0-50.0); MEAN CORPUSCULAR HEMOGLOBIN 30.8 pg (28.0-32.0); MEAN CORPUSCULAR HGB CONC 33.6 g/dL (31.0-37.0); MEAN CORPUSCULAR VOLUME 91.9 fL (80.0-94.0); MEAN PLATELET VOLUME 8.3 fl (7.4-10.4); MONOCYTES % 2.5 % (2.0-8.0); NEUTROPHILS % 88.9 % (40.0-76.0); PLATELET 346 x1000/uL (130-400); RED BLOOD CELL COUNT 3.22 mill/uL (4.7-6.1); RED CELL DISTRIBUTION WIDTH 13.7 % (11.6-14.6)
[2025-05-14 23:30] LABS: BG BASE EXCESS -5.3 mmol/L (-2.0-3.0); BG CARBOXYHEMOGLOBIN 0.9 % (0.5-1.5); BG DEOXYHEMOGLOBIN 1.9 % (0.0-5.0); BG FRACTION INSPIRED OXYGEN 50; BG HCO3 ACT 19.1 mmol/L (21.0-28.0); BG METHEMOGLOBIN 0.1 % (0.5-1.5); BG OXYGEN SATURATION 98.1 % (94.0-98.0); BG OXYHEMOGLOBIN 97.1 % (94.0-98.0); BG PH 7.367 (7.350-7.450); BG PO2 109.5 mmHg (83.0-108.0); BG SAMPLE SITE ALINE; BG VENT MODE VENT - AC
[2025-05-14] MEDS ORDERED: LEVETIRACETAM 1,000MG in NACL 100ML PREMIX IV SCH (23:30)
[2025-05-14] MEDS: SODIUM POLYSTYRENE SULFONATE 15 G/60 ML BOT NG NR (23:40)
[2025-05-14] MEDS: LEVETIRACETAM 1000MG PREMIX 100 ML IV SCH (23:40)
[2025-05-15] VITALS (97 sets, daily range): PULSE 67–100; RESP 14–28; TEMP 95.7–100.1; O2SAT 100
[2025-05-15] MEDS: PANTOPRAZOLE SODIUM 40 MG/VIAL IV SCH
[2025-05-15] MEDS: AMIODARONE 150MG/100ML D5W 100 ML IV SCH (00:01)
[2025-05-15] MEDS: DEXT 5%/0.45% NACL 1000ML 1,000 ML IV SCH (00:10)
[2025-05-15] MEDS ORDERED: LORAZEPAM 2MG/ML UD SYRINGE IV PRN (00:45)
[2025-05-15] MEDS ORDERED: HEPARIN BOLUS PRN aPTT <36 IV (01:00)
[2025-05-15 02:02] LABS: CREATININE URINE RANDOM 36.6 mg/dL
[2025-05-15] MEDS: SODIUM ZIRCONIUM CYCLOSILICATE 10GM/PACKET PO SCH (02:14)
[2025-05-15 03:11] LABS: CLARITY URINE TURBID (CLEAR); COLOR URINE YELLOW (YELLOW); GLUCOSE URINE 1+ (NEGATIVE); KETONES URINE NEGATIVE (NEGATIVE); LEUKOCYTE ESTERASE URINE NEGATIVE (NEGATIVE); NITRITE URINE NEGATIVE (NEGATIVE); OCCULT BLOOD URINE 1+ (NEGATIVE); PROTEIN URINE 4+ (NEGATIVE); SPECIFIC GRAVITY URINE 1.018 (1.005-1.030); UROBILINOGEN URINE 0.2 E.U./dL (0.2-1.0)
[2025-05-15 04:05] LABS: RBC URINE 0-2 /hpf (0-2); WBC URINE 0-2 /hpf (0-2)
[2025-05-15 04:06] LABS: SQUAMOUS EPITHELIAL CELL URINE FEW /lpf (RARE/1+)
[2025-05-15 04:07] LABS: BACTERIA URINE NONE SEEN
[2025-05-15 05:03] LABS: CARBON DIOXIDE 19 mEq/L (21-32); CHLORIDE 107 mEq/L (98-107); POTASSIUM 4.4 mEq/L (3.5-5.1); SODIUM 139 mEq/L (136-145)
[2025-05-15 05:04] LABS: CALCIUM 8.2 mg/dL (8.7-10.4)
[2025-05-15 05:09] LABS: GLUCOSE 293 mg/dL (70-105); TRIGLYCERIDE 102 mg/dL (0-150); UREA NITROGEN BLOOD 78 mg/dL (9-23)
[2025-05-15 05:11] LABS: CREATINE KINASE 226 IU/L (46-171); CREATININE 5.5 mg/dL (0.6-1.3); PHOSPHORUS 5.8 mg/dL (2.5-4.9)
[2025-05-15] MEDS: LANTHANUM CARBONATE 500MG CHEW TABLET PO SCH (06:42)
[2025-05-15 08:01] LABS: HEMATOCRIT. 25.4 % (42.0-52.0); HEMOGLOBIN. 8.6 g/dL (14.0-18.0); MEAN CORPUSCULAR HEMOGLOBIN 30.7 pg (28.0-32.0); MEAN CORPUSCULAR HGB CONC 33.8 g/dL (31.0-37.0); MEAN CORPUSCULAR VOLUME 90.8 fL (80.0-94.0); MEAN PLATELET VOLUME 8.6 fl (7.4-10.4); PLATELET 313 x1000/uL (130-400); RED CELL DISTRIBUTION WIDTH 13.4 % (11.6-14.6); WHITE BLOOD COUNT 13.5 x1000/uL (4.5-11.0)
[2025-05-15 08:13] LABS: DIFFERENTIAL COMMENT 1
[2025-05-15] MEDS: LEVETIRACETAM 1000MG PREMIX 100 ML IV SCH (08:51)
[2025-05-15] MEDS ORDERED: LEVETIRACETAM 1,000MG in NACL 100ML PREMIX IV SCH (09:00)
[2025-05-15 09:20] LABS: BG CARBOXYHEMOGLOBIN 0.8 % (0.5-1.5); BG DEOXYHEMOGLOBIN 1.2 % (0.0-5.0); BG FRACTION INSPIRED OXYGEN 40; BG HCO3 ACT 18.3 mmol/L (21.0-28.0); BG METHEMOGLOBIN 0.1 % (0.5-1.5); BG OXYGEN SATURATION 98.8 % (94.0-98.0); BG OXYHEMOGLOBIN 97.9 % (94.0-98.0); BG PCO2 31.2 mmHg (35.0-48.0); BG PH 7.387 (7.350-7.450); BG SAMPLE SITE ALINE; BG TOTAL HEMOGLOBIN 7.9 g/dL (13.5-17.5); BG VENT MODE VENT - AC
[2025-05-15 11:24] LABS: TROPONIN I HIGH SENSITIVITY 5961 ng/L (3.0-53)
[2025-05-15] MEDS ORDERED: VANCOMYCIN 1G PREMIX 200 ML IV ONE (13:00)
[2025-05-15 14:25] LABS: PLATELET ESTIMATE NORMAL
[2025-05-15] MEDS: CEFEPIME 2GM/50ML DUPLEX 50 ML IV SCH (15:12)
[2025-05-15] MEDS: VANCOMYCIN 1G PREMIX 200 ML IV SCH (15:14)
[2025-05-15] MEDS: ACETAMINOPHEN 325MG TABLET PO PRN (16:49)
[2025-05-15] MEDS: HEPARIN BOLUS PRN aPTT 37-44 IV (18:21)
[2025-05-16] VITALS (66 sets, daily range): PULSE 86–114; RESP 15–27; TEMP 36.8–37.3; O2SAT 99–100
[2025-05-16 05:31] LABS: BASOPHILS % 0.1 % (0.0-2.0); HEMATOCRIT. 24.4 % (42.0-52.0); HEMOGLOBIN. 8.3 g/dL (14.0-18.0); LYMPHOCYTES % 7.5 % (20.0-50.0); MEAN CORPUSCULAR HEMOGLOBIN 30.5 pg (28.0-32.0); MEAN CORPUSCULAR HGB CONC 33.9 g/dL (31.0-37.0); MEAN CORPUSCULAR VOLUME 89.8 fL (80.0-94.0); MEAN PLATELET VOLUME 8.3 fl (7.4-10.4); MONOCYTES % 4.1 % (2.0-8.0); NEUTROPHILS % 88.3 % (40.0-76.0); PLATELET 349 x1000/uL (130-400); RED BLOOD CELL COUNT 2.71 mill/uL (4.7-6.1); RED CELL DISTRIBUTION WIDTH 13.4 % (11.6-14.6)
[2025-05-16 05:51] LABS: CARBON DIOXIDE 18 mEq/L (21-32); CHLORIDE 104 mEq/L (98-107); POTASSIUM 3.6 mEq/L (3.5-5.1); SODIUM 138 mEq/L (136-145)
[2025-05-16 05:52] LABS: CALCIUM 7.6 mg/dL (8.7-10.4)
[2025-05-16 05:57] LABS: GLUCOSE 251 mg/dL (70-105); TRIGLYCERIDE 124 mg/dL (0-150); UREA NITROGEN BLOOD 69 mg/dL (9-23)
[2025-05-16 05:58] LABS: ALANINE AMINOTRANSFERASE 16 IU/L (10-49); ASPARTATE AMINOTRANSFERASE 52 IU/L (<34); LDL CHOLESTEROL 63 mg/dL (5-100)
[2025-05-16 05:59] LABS: BILIRUBIN TOTAL 0.2 mg/dL (0.1-1.0); CHOLESTEROL 121 mg/dL (<200); HDL CHOLESTEROL 42 mg/dL (>55); PROTEIN TOTAL 5.6 g/dL (6.0-8.3)
[2025-05-16 06:01] LABS: THYROID STIMULATING HORMONE 0.86 uIU/mL (0.55-4.78)
[2025-05-16 06:07] LABS: CREATININE 5.6 mg/dL (0.6-1.3)
[2025-05-16 06:09] LABS: TROPONIN I HIGH SENSITIVITY 2945 ng/L (3.0-53)
[2025-05-16] MEDS: ASPIRIN 81MG TABLET NG SCH (08:14)
[2025-05-16] MEDS ORDERED: CEFEPIME 1GM/50ML 50 ML IV SCH (09:00)
[2025-05-16 09:23] LABS: BG BASE EXCESS -7.2 mmol/L (-2.0-3.0); BG CARBOXYHEMOGLOBIN 0.4 % (0.5-1.5); BG FRACTION INSPIRED OXYGEN 40; BG HCO3 ACT 15.3 mmol/L (21.0-28.0); BG OXYHEMOGLOBIN 98.6 % (94.0-98.0); BG PCO2 21.7 mmHg (35.0-48.0); BG PH 7.467 (7.350-7.450); BG PO2 141.4 mmHg (83.0-108.0); BG SAMPLE SITE ALINE; BG TOTAL HEMOGLOBIN 8.3 g/dL (13.5-17.5); BG TOTAL RESPIRATORY RATE 28 b/min; BG VENT MODE VENT - AC
[2025-05-16] MEDS ORDERED: HYDR-2988 PO (12:34)
[2025-05-16] MEDS ORDERED: ISOS20TA8 PO (12:34)
[2025-05-16] MEDS ORDERED: CARV6.2548 PO (12:34)
[2025-05-16] MEDS ORDERED: GABA-529 PO (12:34)
[2025-05-16] MEDS ORDERED: EMPA25TA PO (12:34)
[2025-05-16] MEDS ORDERED: BUME1TAB9 PO (12:34)
[2025-05-16] MEDS ORDERED: INSU100I95 SQ (12:36)
[2025-05-16] MEDS: ENOXAPARIN 30MG/0.3ML SYR SUBCUT SCH (16:49)
[2025-05-16] MEDS: PREGABALIN 50 MG CAPSULE PO SCH (21:10)
[2025-05-17] VITALS (68 sets, daily range): PULSE 75–93; RESP 14–25; TEMP 36.2–36.3; O2SAT 99–100
[2025-05-17] MEDS: BLOOD SUGAR DIAGNOSTIC STRIP TEST SCH
[2025-05-17] MEDS: INSULIN LISPRO 100 UNITS/ML SUBCUT SCH (01:16)
[2025-05-17 06:51] LABS: HEMATOCRIT. 25.5 % (42.0-52.0); HEMOGLOBIN. 8.8 g/dL (14.0-18.0); MEAN CORPUSCULAR HGB CONC 34.4 g/dL (31.0-37.0); MEAN CORPUSCULAR VOLUME 90.2 fL (80.0-94.0); MEAN PLATELET VOLUME 8.5 fl (7.4-10.4); PLATELET 387 x1000/uL (130-400); RED BLOOD CELL COUNT 2.83 mill/uL (4.7-6.1); RED CELL DISTRIBUTION WIDTH 13.2 % (11.6-14.6); WHITE BLOOD COUNT 13.5 x1000/uL (4.5-11.0)
[2025-05-17 07:02] LABS: POTASSIUM 3.5 mEq/L (3.5-5.1)
[2025-05-17 07:04] LABS: CALCIUM 7.5 mg/dL (8.7-10.4)
[2025-05-17 07:27] LABS: DIFFERENTIAL COMMENT 1
[2025-05-17 09:34] LABS: BG BASE EXCESS -6.6 mmol/L (-2.0-3.0); BG CARBOXYHEMOGLOBIN 0.3 % (0.5-1.5); BG DEOXYHEMOGLOBIN 0.9 % (0.0-5.0); BG FRACTION INSPIRED OXYGEN 40; BG HCO3 ACT 16.7 mmol/L (21.0-28.0); BG METHEMOGLOBIN 0.3 % (0.5-1.5); BG OXYGEN SATURATION 99.1 % (94.0-98.0); BG OXYHEMOGLOBIN 98.5 % (94.0-98.0); BG PCO2 25.4 mmHg (35.0-48.0); BG PH 7.435 (7.350-7.450); BG PO2 191.7 mmHg (83.0-108.0); BG SAMPLE SITE ALINE; BG TOTAL HEMOGLOBIN 8.4 g/dL (13.5-17.5); BG TOTAL RESPIRATORY RATE 19 b/min; BG VENT MODE VENT - AC
[2025-05-17 15:32] LABS: PLATELET ESTIMATE NORMAL
[2025-05-17] MEDS: CEFEPIME 1GM/50ML 50 ML IV SCH (15:35)
[2025-05-18] VITALS (50 sets, daily range): PULSE 67–96; RESP 13–28; TEMP 36.1; O2SAT 99–100
[2025-05-18 05:30] LABS: BASOPHILS % 0.2 % (0.0-2.0); EOSINOPHILS % 0.3 % (0.0-5.0); HEMATOCRIT. 26.9 % (42.0-52.0); LYMPHOCYTES % 7.2 % (20.0-50.0); MEAN CORPUSCULAR HEMOGLOBIN 30.1 pg (28.0-32.0); MEAN CORPUSCULAR HGB CONC 33.4 g/dL (31.0-37.0); MEAN PLATELET VOLUME 8.4 fl (7.4-10.4); MONOCYTES % 7.7 % (2.0-8.0); NEUTROPHILS % 84.6 % (40.0-76.0); PLATELET 370 x1000/uL (130-400); RED BLOOD CELL COUNT 2.99 mill/uL (4.7-6.1); RED CELL DISTRIBUTION WIDTH 13.3 % (11.6-14.6)
[2025-05-18 05:31] LABS: POTASSIUM 3.5 mEq/L (3.5-5.1)
[2025-05-18 05:32] LABS: CALCIUM 7.2 mg/dL (8.7-10.4)
[2025-05-18 05:42] LABS: CREATININE 6.4 mg/dL (0.6-1.3)
[2025-05-18] MEDS: FOLIC ACID/VITAMIN B COMP W-C TABLET PO SCH (09:23)
[2025-05-19] VITALS (81 sets, daily range): BP systolic 100–165; BP diastolic 57–79; PULSE 68–85; RESP 3–30; TEMP 36.1–36.9; O2SAT 95–100
[2025-05-19 04:57] LABS: BASOPHILS % 0.2 % (0.0-2.0); EOSINOPHILS % 0.4 % (0.0-5.0); HEMATOCRIT. 29.7 % (42.0-52.0); HEMOGLOBIN. 9.9 g/dL (14.0-18.0); MEAN CORPUSCULAR HEMOGLOBIN 30.2 pg (28.0-32.0); MEAN CORPUSCULAR HGB CONC 33.4 g/dL (31.0-37.0); MEAN CORPUSCULAR VOLUME 90.4 fL (80.0-94.0); MEAN PLATELET VOLUME 8.6 fl (7.4-10.4); MONOCYTES % 7.6 % (2.0-8.0); NEUTROPHILS % 81.8 % (40.0-76.0); PLATELET 397 x1000/uL (130-400); RED BLOOD CELL COUNT 3.29 mill/uL (4.7-6.1); RED CELL DISTRIBUTION WIDTH 13.4 % (11.6-14.6); WHITE BLOOD COUNT 11.1 x1000/uL (4.5-11.0)
[2025-05-19 05:04] LABS: POTASSIUM 3.7 mEq/L (3.5-5.1)
[2025-05-19 05:05] LABS: CALCIUM 7.4 mg/dL (8.7-10.4)
[2025-05-19 05:23] LABS: CREATININE 6.2 mg/dL (0.6-1.3)
[2025-05-19 08:45] LABS: BG BASE EXCESS -7.1 mmol/L (-2.0-3.0); BG CARBOXYHEMOGLOBIN 0.3 % (0.5-1.5); BG DEOXYHEMOGLOBIN 2.1 % (0.0-5.0); BG FRACTION INSPIRED OXYGEN 30; BG HCO3 ACT 17.1 mmol/L (21.0-28.0); BG METHEMOGLOBIN 0.1 % (0.5-1.5); BG OXYGEN SATURATION 97.9 % (94.0-98.0); BG OXYHEMOGLOBIN 97.5 % (94.0-98.0); BG PH 7.374 (7.350-7.450); BG PO2 114.1 mmHg (83.0-108.0); BG SAMPLE SITE ALINE; BG TOTAL HEMOGLOBIN 10.4 g/dL (13.5-17.5); BG VENT MODE VENT - AC
[2025-05-19] MEDS ORDERED: DOCUSATE SODIUM 100MG CAPSULE PO SCH (09:00)
[2025-05-19] MEDS: DOCUSATE SODIUM SUGAR FREE 100MG/10ML UDC NG SCH (09:03)
[2025-05-19] MEDS: BISACODYL 10MG SUPP PR NR (10:38)
[2025-05-20] VITALS (87 sets, daily range): BP systolic 80–153; BP diastolic 55–83; PULSE 59–82; RESP 10–24; TEMP 35.6–36.6; O2SAT 96–100
[2025-05-20 08:28] LABS: BG BASE EXCESS -6.8 mmol/L (-2.0-3.0); BG CARBOXYHEMOGLOBIN 0.3 % (0.5-1.5); BG DEOXYHEMOGLOBIN 1.8 % (0.0-5.0); BG FRACTION INSPIRED OXYGEN 30; BG HCO3 ACT 17.3 mmol/L (21.0-28.0); BG METHEMOGLOBIN 0.3 % (0.5-1.5); BG OXYGEN SATURATION 98.2 % (94.0-98.0); BG OXYHEMOGLOBIN 97.6 % (94.0-98.0); BG PCO2 29.9 mmHg (35.0-48.0); BG PO2 120.7 mmHg (83.0-108.0); BG TOTAL HEMOGLOBIN 10.5 g/dL (13.5-17.5); BG VENT MODE VENT - AC
[2025-05-20 09:03] LABS: POTASSIUM 3.9 mEq/L (3.5-5.1)
[2025-05-20 09:04] LABS: CALCIUM 7.6 mg/dL (8.7-10.4)
[2025-05-20 09:21] LABS: CREATININE 6.1 mg/dL (0.6-1.3)
[2025-05-20] MEDS: NOREPINEPHRINE 8MG/250ML PMX 250 ML IV PRN (10:10)
[2025-05-21] VITALS (102 sets, daily range): BP systolic 86–158; BP diastolic 53–79; PULSE 70–87; RESP 0–21; TEMP 35.5–35.8; O2SAT 94–100
[2025-05-21 09:23] LABS: BG BASE EXCESS -10.5 mmol/L (-2.0-3.0); BG CARBOXYHEMOGLOBIN 0.4 % (0.5-1.5); BG DEOXYHEMOGLOBIN 4.6 % (0.0-5.0); BG FRACTION INSPIRED OXYGEN 30; BG HCO3 ACT 13.4 mmol/L (21.0-28.0); BG METHEMOGLOBIN 0.2 % (0.5-1.5); BG OXYGEN SATURATION 95.4 % (94.0-98.0); BG OXYHEMOGLOBIN 94.8 % (94.0-98.0); BG PCO2 23.7 mmHg (35.0-48.0); BG PH 7.371 (7.350-7.450); BG PO2 82.9 mmHg (83.0-108.0); BG SAMPLE SITE ALINE; BG TOTAL HEMOGLOBIN 8.9 g/dL (13.5-17.5); BG TOTAL RESPIRATORY RATE 19 b/min; BG VENT MODE VENT - AC
[2025-05-21 13:32] LABS: HEMATOCRIT. 27.6 % (42.0-52.0); MEAN CORPUSCULAR HEMOGLOBIN 30.1 pg (28.0-32.0); MEAN CORPUSCULAR HGB CONC 32.7 g/dL (31.0-37.0); MEAN CORPUSCULAR VOLUME 92.1 fL (80.0-94.0); MEAN PLATELET VOLUME 8.9 fl (7.4-10.4); PLATELET 361 x1000/uL (130-400); RED BLOOD CELL COUNT 2.99 mill/uL (4.7-6.1); RED CELL DISTRIBUTION WIDTH 13.9 % (11.6-14.6); WHITE BLOOD COUNT 13.6 x1000/uL (4.5-11.0)
[2025-05-21 13:39] LABS: DIFFERENTIAL COMMENT 1
[2025-05-21 14:02] LABS: CALCIUM 7.2 mg/dL (8.7-10.4)
[2025-05-21 15:23] LABS: NUCLEATED RED BLOOD CELLS 1 /100 WBC; PLATELET ESTIMATE NORMAL
[2025-05-21 15:25] LABS: ANISOCYTOSIS 1+
[2025-05-22] VITALS (99 sets, daily range): BP systolic 79–195; BP diastolic 43–105; PULSE 65–93; RESP 0–31; TEMP 34.7–36.2; O2SAT 93–100
[2025-05-22 05:16] LABS: POTASSIUM 4.1 mEq/L (3.5-5.1)
[2025-05-22 05:17] LABS: CALCIUM 7.1 mg/dL (8.7-10.4)
[2025-05-22 05:23] LABS: HEMATOCRIT. 25.5 % (42.0-52.0); HEMOGLOBIN. 8.6 g/dL (14.0-18.0); MEAN CORPUSCULAR HEMOGLOBIN 30.4 pg (28.0-32.0); MEAN CORPUSCULAR HGB CONC 33.6 g/dL (31.0-37.0); MEAN CORPUSCULAR VOLUME 90.7 fL (80.0-94.0); MEAN PLATELET VOLUME 8.9 fl (7.4-10.4); PLATELET 342 x1000/uL (130-400); RED BLOOD CELL COUNT 2.81 mill/uL (4.7-6.1); RED CELL DISTRIBUTION WIDTH 13.8 % (11.6-14.6); WHITE BLOOD COUNT 15.3 x1000/uL (4.5-11.0)
[2025-05-22 05:27] LABS: CREATININE 6.2 mg/dL (0.6-1.3)
[2025-05-22 06:08] LABS: DIFFERENTIAL COMMENT 1
[2025-05-22] MEDS ORDERED: LIDOCAINE HCL 1% 10 MG/ML 10ML VIAL ONE (08:30)
[2025-05-22] MEDS: LACTULOSE 20G/30ML UDC PO SCH (08:31)
[2025-05-22] MEDS: DOCUSATE SODIUM SUGAR FREE 100MG/10ML UDC NG SCH (08:34)
[2025-05-22] MEDS: NA PHOS,M-B/NA PHOS,DI-BA ENEMA 118ML PR SCH (08:58)
[2025-05-22 10:23] LABS: PLATELET ESTIMATE NORMAL
[2025-05-22] MEDS: INSULIN GLARGINE 100 UNITS/ML SUBCUT SCH (10:35)
[2025-05-22 12:15] LABS: HEPATITIS B SURFACE ANTIGEN NEGATIVE (Negative)
[2025-05-22 12:36] LABS: HEPATITIS A AB IGM NEGATIVE (Negative); HEPATITIS B CORE AB IGM NEGATIVE (Negative)
[2025-05-22 12:37] LABS: HEPATITIS C AB NON REACTIVE (Neg) (Negative)
[2025-05-23] VITALS (56 sets, daily range): BP systolic 87–164; BP diastolic 51–75; PULSE 61–81; RESP 0–24; TEMP 34.4–35.6; O2SAT 98–100
[2025-05-23 05:37] LABS: HEMATOCRIT. 26.5 % (42.0-52.0); MEAN CORPUSCULAR HEMOGLOBIN 30.4 pg (28.0-32.0); MEAN CORPUSCULAR HGB CONC 33.8 g/dL (31.0-37.0); MEAN CORPUSCULAR VOLUME 90.1 fL (80.0-94.0); MEAN PLATELET VOLUME 9.2 fl (7.4-10.4); PLATELET 345 x1000/uL (130-400); RED BLOOD CELL COUNT 2.94 mill/uL (4.7-6.1); RED CELL DISTRIBUTION WIDTH 13.8 % (11.6-14.6)
[2025-05-23 05:54] LABS: CHLORIDE 103 mEq/L (98-107); POTASSIUM 4.1 mEq/L (3.5-5.1); SODIUM 139 mEq/L (136-145)
[2025-05-23 05:55] LABS: CARBON DIOXIDE 24 mEq/L (21-32)
[2025-05-23 05:56] LABS: CALCIUM 7.7 mg/dL (8.7-10.4)
[2025-05-23 06:01] LABS: GLUCOSE 326 mg/dL (70-105); UREA NITROGEN BLOOD 45 mg/dL (9-23)
[2025-05-23 06:02] LABS: ALANINE AMINOTRANSFERASE 21 IU/L (10-49); ASPARTATE AMINOTRANSFERASE 63 IU/L (<34)
[2025-05-23 06:03] LABS: BILIRUBIN DIRECT < 0.1 mg/dL (<=3.0); BILIRUBIN TOTAL < 0.2 mg/dL (0.1-1.0); CREATINE KINASE 93 IU/L (46-171); PROTEIN TOTAL 5.6 g/dL (6.0-8.3)
[2025-05-23 06:26] LABS: CREATININE 3.8 mg/dL (0.6-1.3)
[2025-05-23 06:48] LABS: DIFFERENTIAL COMMENT 1
[2025-05-23] MEDS: INSULIN GLARGINE 100 UNITS/ML SUBCUT SCH (10:01)
[2025-05-23 11:36] LABS: PLATELET ESTIMATE NORMAL
[2025-05-23] MEDS: VANCOMYCIN 1.25GM/250ML 250 ML IV NR (15:42)
[2025-05-23] MEDS: MEROPENEM 500 MG in SODIUM CHLORIDE 0.9% 50 ML IV SCH (17:01)
[2025-05-24] VITALS (58 sets, daily range): BP systolic 92–164; BP diastolic 55–74; PULSE 56–70; RESP 0–16; TEMP 33.8–36.55848; O2SAT 90–100
[2025-05-24] MEDS: DEXT 5%/0.45% NACL 1000ML 1,000 ML IV SCH (00:21)
[2025-05-24 05:53] LABS: BASOPHILS % 0.1 % (0.0-2.0); EOSINOPHILS % 0.3 % (0.0-5.0); HEMATOCRIT. 24.5 % (42.0-52.0); HEMOGLOBIN. 8.1 g/dL (14.0-18.0); LYMPHOCYTES % 7.6 % (20.0-50.0); MEAN CORPUSCULAR HGB CONC 33.1 g/dL (31.0-37.0); MEAN CORPUSCULAR VOLUME 90.5 fL (80.0-94.0); MEAN PLATELET VOLUME 9.7 fl (7.4-10.4); MONOCYTES % 5.3 % (2.0-8.0); NEUTROPHILS % 86.7 % (40.0-76.0); PLATELET 303 x1000/uL (130-400); RED BLOOD CELL COUNT 2.71 mill/uL (4.7-6.1); RED CELL DISTRIBUTION WIDTH 13.7 % (11.6-14.6)
[2025-05-24 06:05] LABS: POTASSIUM 3.8 mEq/L (3.5-5.1)
[2025-05-24 06:06] LABS: CALCIUM 7.8 mg/dL (8.7-10.4)
[2025-05-24 06:10] LABS: CREATININE 4.2 mg/dL (0.6-1.3)
[2025-05-24 09:05] LABS: PHOSPHORUS 4.8 mg/dL (2.5-4.9)
[2025-05-24 10:08] LABS: BG BASE EXCESS -0.7 mmol/L (-2.0-3.0); BG DEOXYHEMOGLOBIN 4.6 % (0.0-5.0); BG FRACTION INSPIRED OXYGEN 30; BG METHEMOGLOBIN 0.3 % (0.5-1.5); BG OXYGEN SATURATION 95.4 % (94.0-98.0); BG OXYHEMOGLOBIN 95.1 % (94.0-98.0); BG PCO2 28.4 mmHg (35.0-48.0); BG PH 7.507 (7.350-7.450); BG SAMPLE SITE RIGHT RADIAL; BG TOTAL HEMOGLOBIN 7.7 g/dL (13.5-17.5); BG VENT MODE VENT - AC
[2025-05-24] MEDS ORDERED: LIDOCAINE HCL/EPINEPHRINE 1%-EPI 1:100,000 20ML VIAL ONE (13:13)
[2025-05-24] MEDS ORDERED: ROCURONIUM BROMIDE 10MG/ML VIAL 5ML IV ONE ×2 (13:52→13:53)
[2025-05-24] MEDS ORDERED: KCL 20MEQ/100ML PREMIX 100 ML IV PRN (23:30)
[2025-05-24] MEDS ORDERED: POTASSIUM CHLORIDE 40 MEQ in SODIUM CHLORIDE 0.9% 230 ML IV PRN (23:30)
[2025-05-25] VITALS (31 sets, daily range): BP systolic 91–164; BP diastolic 54–76; PULSE 59–80; RESP 12–14; TEMP 35.7–36.4; O2SAT 95–100
[2025-05-25 06:07] LABS: BASOPHILS % 0.2 % (0.0-2.0); EOSINOPHILS % 0.5 % (0.0-5.0); HEMOGLOBIN. 9.3 g/dL (14.0-18.0); LYMPHOCYTES % 9.2 % (20.0-50.0); MEAN CORPUSCULAR HEMOGLOBIN 30.6 pg (28.0-32.0); MEAN CORPUSCULAR HGB CONC 33.3 g/dL (31.0-37.0); MEAN CORPUSCULAR VOLUME 91.9 fL (80.0-94.0); MEAN PLATELET VOLUME 10.1 fl (7.4-10.4); MONOCYTES % 3.8 % (2.0-8.0); NEUTROPHILS % 86.3 % (40.0-76.0); PLATELET 325 x1000/uL (130-400); RED BLOOD CELL COUNT 3.04 mill/uL (4.7-6.1); WHITE BLOOD COUNT 16.9 x1000/uL (4.5-11.0)
[2025-05-25 06:30] LABS: CALCIUM 8.7 mg/dL (8.7-10.4); POTASSIUM 3.7 mEq/L (3.5-5.1)
[2025-05-25 06:36] LABS: CREATININE 3.3 mg/dL (0.6-1.3)
[2025-05-25] MEDS ORDERED: CLONIDINE 0.1MG TABLET PO PRN (07:45)
[2025-05-25 08:48] LABS: BG BASE EXCESS 3.4 mmol/L (-2.0-3.0); BG CARBOXYHEMOGLOBIN 0.4 % (0.5-1.5); BG DEOXYHEMOGLOBIN 4.2 % (0.0-5.0); BG FRACTION INSPIRED OXYGEN 30; BG HCO3 ACT 26.4 mmol/L (21.0-28.0); BG METHEMOGLOBIN 0.3 % (0.5-1.5); BG OXYGEN SATURATION 95.8 % (94.0-98.0); BG OXYHEMOGLOBIN 95.1 % (94.0-98.0); BG PH 7.521 (7.350-7.450); BG SAMPLE SITE RIGHT RADIAL; BG TOTAL HEMOGLOBIN 7.1 g/dL (13.5-17.5); BG VENT MODE VENT - AC
[2025-05-25] MEDS: MEROPENEM 500MG/50ML 50 ML IV SCH (18:02)
[2025-05-26] VITALS (29 sets, daily range): BP systolic 87–152; BP diastolic 58–74; PULSE 56–82; RESP 12–18; TEMP 35.8–36.8; O2SAT 97–100
[2025-05-26 08:39] LABS: BASOPHILS % 0.1 % (0.0-2.0); DIFFERENTIAL COMMENT 0; EOSINOPHILS % 0.4 % (0.0-5.0); HEMATOCRIT. 29.4 % (42.0-52.0); HEMOGLOBIN. 9.5 g/dL (14.0-18.0); LYMPHOCYTES % 8.6 % (20.0-50.0); MEAN CORPUSCULAR HEMOGLOBIN 29.7 pg (28.0-32.0); MEAN CORPUSCULAR HGB CONC 32.3 g/dL (31.0-37.0); MEAN PLATELET VOLUME 9.8 fl (7.4-10.4); MONOCYTES % 4.8 % (2.0-8.0); NEUTROPHILS % 86.1 % (40.0-76.0); PLATELET 281 x1000/uL (130-400); RED CELL DISTRIBUTION WIDTH 13.9 % (11.6-14.6); WHITE BLOOD COUNT 14.6 x1000/uL (4.5-11.0)
[2025-05-26 09:09] LABS: CALCIUM 8.2 mg/dL (8.7-10.4); POTASSIUM 3.7 mEq/L (3.5-5.1)
[2025-05-26 09:57] LABS: BG BASE EXCESS 2.7 mmol/L (-2.0-3.0); BG CARBOXYHEMOGLOBIN 0.3 % (0.5-1.5); BG DEOXYHEMOGLOBIN 3.4 % (0.0-5.0); BG FRACTION INSPIRED OXYGEN 30; BG HCO3 ACT 26.2 mmol/L (21.0-28.0); BG METHEMOGLOBIN 0.3 % (0.5-1.5); BG OXYGEN SATURATION 96.6 % (94.0-98.0); BG PCO2 35.9 mmHg (35.0-48.0); BG PH 7.481 (7.350-7.450); BG PO2 92.5 mmHg (83.0-108.0); BG SAMPLE SITE LEFT RADIAL; BG TOTAL HEMOGLOBIN 9.9 g/dL (13.5-17.5); BG TOTAL RESPIRATORY RATE 12 b/min; BG VENT MODE VENT - AC
[2025-05-27] VITALS (20 sets, daily range): BP systolic 92–138; BP diastolic 55–71; PULSE 65–76; RESP 12–15; TEMP 35.8–36.4; O2SAT 98–100
[2025-05-28] VITALS (19 sets, daily range): BP systolic 88–122; BP diastolic 57–68; PULSE 70–82; RESP 12–21; TEMP 36.3–36.5; O2SAT 76–100
[2025-05-28] MEDS ORDERED: MORPHINE SULFATE/PF 1 MG/ML 100 MG in BAG 1 EACH IV PRN (17:15)
[2025-05-28] MEDS: MORPHINE SULFATE 250 MG in DEXT 5% WATER 250 ML IV PRN (17:46)
== END 2025-05-28 23:40 | DRG 3 ==
LOC: 6EST 10:20 → MICUNO 05-14 19:29 → 5EST 05-25 08:25
PROVIDERS: ADMIT Internal Medicine; ATTEND Internal Medicine
PROC: 047N3Z1 Dilation of Left Popliteal Artery using Drug-Coated Balloon, Percutaneous Approach (ICD-10-PCS; 2025-05-12)
PROC: 047Q3ZZ Dilation of Left Anterior Tibial Artery, Percutaneous Approach (ICD-10-PCS; 2025-05-12)
PROC: 04CN3ZZ Extirpation of Matter from Left Popliteal Artery, Percutaneous Approach (ICD-10-PCS; 2025-05-12)
PROC: B41G1ZZ Fluoroscopy of Left Lower Extremity Arteries using Low Osmolar Contrast (ICD-10-PCS; 2025-05-12)
PROC: 047L3Z1 Dilation of Left Femoral Artery using Drug-Coated Balloon, Percutaneous Approach (ICD-10-PCS; 2025-05-12)
PROC: 04CL3ZZ Extirpation of Matter from Left Femoral Artery, Percutaneous Approach (ICD-10-PCS; 2025-05-12)
PROC: 0Y6N0Z9 Detachment at Left Foot, Partial 1st Ray, Open Approach (ICD-10-PCS; 2025-05-13)
PROC: 0Y6N0ZB Detachment at Left Foot, Partial 2nd Ray, Open Approach (ICD-10-PCS; 2025-05-13)
PROC: 02HV33Z Insertion of Infusion Device into Superior Vena Cava, Percutaneous Approach (ICD-10-PCS; 2025-05-13)
PROC: B5181ZA Fluoroscopy of Superior Vena Cava using Low Osmolar Contrast, Guidance (ICD-10-PCS; 2025-05-13)
PROC: B548ZZA Ultrasonography of Superior Vena Cava, Guidance (ICD-10-PCS; 2025-05-13)
PROC: 5A1955Z Respiratory Ventilation, Greater than 96 Consecutive Hours (ICD-10-PCS; 2025-05-14)
PROC: 0BH17EZ Insertion of Endotracheal Airway into Trachea, Via Natural or Artificial Opening (ICD-10-PCS; 2025-05-14)
PROC: 04HY32Z Insertion of Monitoring Device into Lower Artery, Percutaneous Approach (ICD-10-PCS; 2025-05-14)
PROC: 5A12012 Performance of Cardiac Output, Single, Manual (ICD-10-PCS; 2025-05-14)
PROC: 4A00X4Z Measurement of Central Nervous Electrical Activity, External Approach (ICD-10-PCS; 2025-05-18)
PROC: 02HV33Z Insertion of Infusion Device into Superior Vena Cava, Percutaneous Approach (ICD-10-PCS; 2025-05-22)
PROC: B548ZZA Ultrasonography of Superior Vena Cava, Guidance (ICD-10-PCS; 2025-05-22)
PROC: 5A1D70Z Performance of Urinary Filtration, Intermittent, Less than 6 Hours Per Day (ICD-10-PCS; 2025-05-22)
PROC: 0B110F4 Bypass Trachea to Cutaneous with Tracheostomy Device, Open Approach (ICD-10-PCS; principal; 2025-05-24)
PROC: 5A1D70Z Performance of Urinary Filtration, Intermittent, Less than 6 Hours Per Day (ICD-10-PCS; 2025-05-24)
PROC: 5A1D70Z Performance of Urinary Filtration, Intermittent, Less than 6 Hours Per Day (ICD-10-PCS; 2025-05-26)
DX: T87.44 Infection of amputation stump, left lower extremity (principal); A41.9 Sepsis, unspecified organism; G93.6 Cerebral edema; J96.01 Acute respiratory failure with hypoxia; N17.0 Acute kidney failure with tubular necrosis; N18.6 End stage renal disease; G93.1 Anoxic brain damage, not elsewhere classified; R57.9 Shock, unspecified; E11.52 Type 2 diabetes mellitus with diabetic peripheral angiopathy with gangrene; L97.429 Non-pressure chronic ulcer of left heel and midfoot with unspecified severity; D68.59 Other primary thrombophilia; E87.20 Acidosis, unspecified; I13.2 Hypertensive heart and chronic kidney disease with heart failure and with stage 5 chronic kidney disease, or end stage renal disease; I50.22 Chronic systolic (congestive) heart failure; I42.9 Cardiomyopathy, unspecified; Z99.11 Dependence on respirator [ventilator] status; M86.172 Other acute osteomyelitis, left ankle and foot; I70.261 Atherosclerosis of native arteries of extremities with gangrene, right leg; I46.9 Cardiac arrest, cause unspecified; Z66 Do not resuscitate; E11.69 Type 2 diabetes mellitus with other specified complication; E11.621 Type 2 diabetes mellitus with foot ulcer; E11.40 Type 2 diabetes mellitus with diabetic neuropathy, unspecified; D64.9 Anemia, unspecified; E11.22 Type 2 diabetes mellitus with diabetic chronic kidney disease; E83.39 Other disorders of phosphorus metabolism; E11.65 Type 2 diabetes mellitus with hyperglycemia; S91.302A Unspecified open wound, left foot, initial encounter; I25.10 Atherosclerotic heart disease of native coronary artery without angina pectoris; E78.00 Pure hypercholesterolemia, unspecified; R13.12 Dysphagia, oropharyngeal phase; Z89.611 Acquired absence of right leg above knee; Z51.5 Encounter for palliative care; Z79.4 Long term (current) use of insulin; Z79.82 Long term (current) use of aspirin; Z79.84 Long term (current) use of oral hypoglycemic drugs; Z89.511 Acquired absence of right leg below knee; Z95.5 Presence of coronary angioplasty implant and graft; Z99.2 Dependence on renal dialysis; Z79.899 Other long term (current) drug therapy; Z82.49 Family history of ischemic heart disease and other diseases of the circulatory system; Z83.3 Family history of diabetes mellitus; X58.XXXA Exposure to other specified factors, initial encounter; Y92.89 Other specified places as the place of occurrence of the external cause; Y93.89 Activity, other specified; Y99.8 Other external cause status; Y83.5 Amputation of limb(s) as the cause of abnormal reaction of the patient, or of later complication, without mention of misadventure at the time of the procedure
CPT/HCPCS: 31500; 31720; 36415; 36556; 36573; 36600; 37225; 37228; 71045; 73630; 74018; 75710; 76700; 76770; 76937; 78580; 78610; 80048; 80053; 80061; 80076; 80202; 81003; 82375; 82550; 82570; 82805; 82962; 83036; 83605; 83735; 84100; 84145; 84300; 84443; 84478; 84484; 85025; 85347; 85651; 86705; 86709; 86850; 86900; 87070; 87075; 87077; 87186; 87340; 88304; 88311; 90935; 92950; 93005; 93306; 93923; 94002; 94003; 94070; 94664; 94760; 95816; 98960; A4606; A9512; C1725; C1752; C1769; C1887; C1893; C1894; C2623; J0282; J0692; J0696; J1644; J1650; J1815; J1953; J2003; J2004; J2185; J2250; J2470; J2543; J2704; J3010; J3370; J3490; J7030; J7060; Q9967; A5200; C1714